=== PATIENT | male | born 1945 | race African-American/Black ===

== ENCOUNTER 2017-10-01 14:18 | Inpatient (IN) ==
[2017-10-01] MEDS ORDERED: BUPIVACAINE 0.25% 50 ML VIAL ONE (14:42)
[2017-10-01] MEDS ORDERED: ACETAMINOPHEN 325 MG TABLET PO ONE (14:53)
[2017-10-01] MEDS ORDERED: ACETAMINOPHEN 325 MG TABLET ONE (15:19)
[2017-10-01 15:44] LABS: Basophils # 0.1 10*3/uL (0.0-0.2); Basophils % 0.2 % (0.0-0.8); Hematocrit 29.4 VOL% (42.0-52.0); Immature Granulocytes % 1.2 %; Immature Granulocytes Absolute 0.31 #; Lymphocytes # 0.9 10*3/uL (1.4-4.0); Lymphocytes % 3.5 % (21.2-54.2); Mean Corpuscular Hemoglobin 28 PG (27-34); Mean Corpuscular Volume 83.1 FL (87-102); Mean Platelet Volume 9.7 FL (9.6-12.0); Monocytes % 3.7 % (1.7-12.7); Neutrophils # 24.3 10*3/uL (1.4-7.4); Neutrophils % 91.4 % (38.7-73.9); Platelet Count 415 T/CUMM (130-400); Red Blood Count 3.54 MC/CUMM (3.8-5.5); Red Cell Distribution Width 12.7 % (9.3-17.3); White Blood Count 26.6 T/CUMM (4-12)
[2017-10-01 16:01] LABS: Lactic Acid 1.7 MMOL/L (0.4-2.0)
[2017-10-01 16:02] LABS: Albumin 2.2 G/DL (3.4-5.0); Bilirubin,Total 0.8 MG/DL (0.2-1.0); Calcium 7.9 MG/DL (8.5-10.1); Total Protein 6.5 G/DL (6.4-8.3)
[2017-10-01] MEDS ORDERED: INSULIN REGULAR 100 UNIT/ML SUBCUT STA (16:23)
[2017-10-01 16:36] LABS: Anisocytosis Slight; Band Neutrophils 2 % (0-10); Lymphocytes 5 % (20-55); Macrocytosis Slight; Platelet Estimate Increased; Segmented Neutrophils 89 % (50-85); Total Cells Counted 100
[2017-10-01] MEDS ORDERED: INSULIN REGULAR 100 UNIT/ML ONE (16:49)
[2017-10-01] MEDS ORDERED: GLUCAGON 1 MG VIAL IM PRN (19:10)
[2017-10-01] MEDS ORDERED: DEXTROSE 50% 25 GM/50 ML VIAL IV PRN (19:10)
[2017-10-01] MEDS ORDERED: ACETAMINOPHEN 325 MG TABLET PO PRN (19:16)
[2017-10-01] MEDS ORDERED: ONDANSETRON 4 MG/2 ML VIAL IV PRN (19:16)
[2017-10-01] MEDS ORDERED: hydrALAZINE 20 MG/1 ML VIAL IV PRN (19:31)
[2017-10-01] MEDS: DOCUSATE SODIUM 100 MG CAPSULE PO SCH (20:46)
[2017-10-01] MEDS: PIPERACILLIN/TAZOBACTAM 3,375 MG in SODIUM CHLORIDE 0.9% 100 ML IV SCH (20:47)
[2017-10-01] MEDS: ENOXAPARIN 40 MG/0.4 ML SYRINGE SUBCUT SCH (20:55)
[2017-10-01] MEDS: INSULIN REGULAR 100 UNIT/ML SUBCUT SCH (20:55)
[2017-10-02] MEDS: VANCOMYCIN INJ 1,250 MG in SODIUM CHLORIDE 0.9% 250 ML IV SCH ×2 (00:43→12:03)
[2017-10-02] MEDS: traMADol 50 MG TABLET PO PRN (04:23)
[2017-10-02] MEDS: PIPERACILLIN/TAZOBACTAM 3,375 MG in SODIUM CHLORIDE 0.9% 100 ML IV SCH ×3 (04:24→22:29)
[2017-10-02 05:42] LABS: Basophils % 0.2 % (0.0-0.8); Eosinophils % 0.1 % (0.00-10.9); Hematocrit 27.6 VOL% (42.0-52.0); Hemoglobin 9.5 GM/DL (14.0-18.0); Immature Granulocytes % 1.3 %; Immature Granulocytes Absolute 0.25 #; Lymphocytes # 1.5 10*3/uL (1.4-4.0); Lymphocytes % 7.5 % (21.2-54.2); Mean Corpuscular HGB Conc 34.4 GM/DL (32-36); Mean Corpuscular Hemoglobin 28 PG (27-34); Mean Corpuscular Volume 81.2 FL (87-102); Mean Platelet Volume 9.7 FL (9.6-12.0); Monocytes # 0.8 10*3/uL (0.11-0.8); Monocytes % 4.2 % (1.7-12.7); Neutrophils # 17.3 10*3/uL (1.4-7.4); Neutrophils % 86.7 % (38.7-73.9); Platelet Count 407 T/CUMM (130-400); Red Cell Distribution Width 12.7 % (9.3-17.3); White Blood Count 19.9 T/CUMM (4-12)
[2017-10-02 06:16] LABS: Calcium 7.8 MG/DL (8.5-10.1); Osmolality,Calculated 278.5 MOS/KG (273-304); Potassium 3.7 MMOL/L (3.5-5.1)
[2017-10-02 07:39] LABS: Apearance,Urine Slightly Hazy (Clear); Bilirubin,Urine Negative (Negative); Blood, Urine Negative (Negative); Glucose,Urine (UA) 150 mg/dL (Negative); Ketones,Urine Negative (Negative); Mucus,Urine Occasional /LPF (Occasional); Nitrite,Urine Negative (Negative); Protein,Urine Negative; RBC,Urine 2 /HPF (0-4); Sperm,Urine Many /HPF (Negative); Squamous Epithelial Cell,Urine Occasional /HPF (0-10); Urine Color Amber (Yellow); Urine Specific Gravity 1.023 (1.001-1.035); WBC,Urine 1 /HPF (0-6)
[2017-10-02 08:12] LABS: Band Neutrophils 3 % (0-10); Lymphocytes 2 % (20-55); Segmented Neutrophils 93 % (50-85); Total Cells Counted 100
[2017-10-02 08:13] LABS: Hypochromasia 1+; Platelet Estimate Increased
[2017-10-02] MEDS: amLODIPine 10 MG TABLET PO SCH (09:32)
[2017-10-02] MEDS: INSULIN REGULAR 100 UNIT/ML SUBCUT SCH ×4 (09:32→23:10)
[2017-10-02] MEDS: glyBURIDE 5 MG TABLET PO SCH (09:33)
[2017-10-02] MEDS: DOCUSATE SODIUM 100 MG CAPSULE PO SCH ×2 (09:33→22:29)
[2017-10-02] MEDS ORDERED: ROPIVACAINE 0.5% 30 ML VIAL ONE (13:03)
[2017-10-02] MEDS ORDERED: MIDAZOLAM 2 MG/2 ML VIAL ONE (13:22)
[2017-10-02] MEDS ORDERED: fentaNYL 100 MCG/2 ML VIAL ONE (13:22)
[2017-10-02] MEDS: LACTATED RINGERS 1,000 ML IV SCH (14:00)
[2017-10-02] MEDS ORDERED: COLLAGENASE OINT 30 GM TUBE TOP ONE (14:37)
[2017-10-02] MEDS ORDERED: ETOMIDATE 40 MG/20 ML VIAL IV ONE (14:59)
[2017-10-02] MEDS ORDERED: PROPOFOL 200 MG/20 ML VIAL IV ONE (14:59)
[2017-10-02] MEDS ORDERED: SODIUM CHLORIDE 0.9% 100 ML IV ONE (14:59)
[2017-10-02] MEDS ORDERED: ZINC OXIDE PASTE 113 GM TUBE TOP PRN (15:37)
[2017-10-02] MEDS: ENALAPRIL 10 MG TABLET PO SCH (17:07)
[2017-10-02] MEDS: PANTOPRAZOLE 40 MG TABLET PO SCH (17:09)
[2017-10-02] MEDS: ENOXAPARIN 40 MG/0.4 ML SYRINGE SUBCUT SCH (23:10)
[2017-10-03] MEDS: VANCOMYCIN INJ 1,250 MG in SODIUM CHLORIDE 0.9% 250 ML IV SCH ×2 (04:20→16:45)
[2017-10-03 05:23] LABS: Basophils % 0.2 % (0.0-0.8); Eosinophils # 0.1 10*3/uL (0.0-0.87); Eosinophils % 0.2 % (0.00-10.9); Hematocrit 30.6 VOL% (42.0-52.0); Immature Granulocytes % 0.9 %; Immature Granulocytes Absolute 0.18 #; Lymphocytes # 1.5 10*3/uL (1.4-4.0); Lymphocytes % 7.4 % (21.2-54.2); Mean Corpuscular HGB Conc 32.7 GM/DL (32-36); Mean Corpuscular Hemoglobin 28 PG (27-34); Mean Corpuscular Volume 84.8 FL (87-102); Mean Platelet Volume 9.7 FL (9.6-12.0); Monocytes # 0.9 10*3/uL (0.11-0.8); Monocytes % 4.4 % (1.7-12.7); Neutrophils # 17.4 10*3/uL (1.4-7.4); Neutrophils % 86.9 % (38.7-73.9); Platelet Count 438 T/CUMM (130-400); Red Blood Count 3.61 MC/CUMM (3.8-5.5); Red Cell Distribution Width 12.6 % (9.3-17.3)
[2017-10-03 05:55] LABS: Calcium 8.3 MG/DL (8.5-10.1); Osmolality,Calculated 283.1 MOS/KG (273-304); Potassium 3.7 MMOL/L (3.5-5.1)
[2017-10-03 05:56] LABS: Band Neutrophils 1 % (0-10); Lymphocytes 15 % (20-55); Platelet Estimate Normal; Segmented Neutrophils 83 % (50-85); Total Cells Counted 100
[2017-10-03 06:10] LABS: T4 (Thyroxine) 8.4 UG/DL (4.7-13.3); Thyroid Stimulating Hormone 0.72 uIU/ml (0.358-3.74)
[2017-10-03] MEDS: traMADol 50 MG TABLET PO PRN (06:17)
[2017-10-03] MEDS: SODIUM HYPOCHLORITE 0.25% IRRIG 473 ML BOTTLE TOP SCH ×2 (06:17→09:29)
[2017-10-03] MEDS: INSULIN REGULAR 100 UNIT/ML SUBCUT SCH ×4 (09:27→20:55)
[2017-10-03] MEDS: amLODIPine 10 MG TABLET PO SCH (09:27)
[2017-10-03] MEDS: PANTOPRAZOLE 40 MG TABLET PO SCH (09:27)
[2017-10-03] MEDS: glyBURIDE 5 MG TABLET PO SCH (09:27)
[2017-10-03] MEDS: DOCUSATE SODIUM 100 MG CAPSULE PO SCH ×2 (09:27→20:55)
[2017-10-03] MEDS: PIPERACILLIN/TAZOBACTAM 3,375 MG in SODIUM CHLORIDE 0.9% 100 ML IV SCH ×2 (09:28→20:56)
[2017-10-03] MEDS ORDERED: TUBERCULIN SKIN TEST 0.1 ML SYRINGE INTRADERM ONE (10:34)
[2017-10-03] MEDS: ENALAPRIL 10 MG TABLET PO SCH (18:09)
[2017-10-03] MEDS: LACTATED RINGERS 1,000 ML IV SCH (18:31)
[2017-10-03] MEDS: ENOXAPARIN 40 MG/0.4 ML SYRINGE SUBCUT SCH (20:55)
[2017-10-04] MEDS: VANCOMYCIN INJ 1,250 MG in SODIUM CHLORIDE 0.9% 250 ML IV SCH ×2 (03:33→16:51)
[2017-10-04 04:04] LABS: Basophils % 0.2 % (0.0-0.8); Eosinophils # 0.1 10*3/uL (0.0-0.87); Eosinophils % 0.5 % (0.00-10.9); Hematocrit 29.9 VOL% (42.0-52.0); Hemoglobin 10.1 GM/DL (14.0-18.0); Immature Granulocytes % 1.3 %; Immature Granulocytes Absolute 0.22 #; Lymphocytes # 1.4 10*3/uL (1.4-4.0); Lymphocytes % 8.5 % (21.2-54.2); Mean Corpuscular HGB Conc 33.8 GM/DL (32-36); Mean Corpuscular Hemoglobin 28 PG (27-34); Mean Corpuscular Volume 83.3 FL (87-102); Mean Platelet Volume 9.2 FL (9.6-12.0); Monocytes # 0.8 10*3/uL (0.11-0.8); Monocytes % 4.6 % (1.7-12.7); Neutrophils # 14.4 10*3/uL (1.4-7.4); Neutrophils % 84.9 % (38.7-73.9); Platelet Count 460 T/CUMM (130-400); Red Blood Count 3.59 MC/CUMM (3.8-5.5); Red Cell Distribution Width 12.8 % (9.3-17.3)
[2017-10-04 04:32] LABS: Calcium 8.3 MG/DL (8.5-10.1); Osmolality,Calculated 284.5 MOS/KG (273-304); Potassium 3.9 MMOL/L (3.5-5.1)
[2017-10-04] MEDS: PIPERACILLIN/TAZOBACTAM 3,375 MG in SODIUM CHLORIDE 0.9% 100 ML IV SCH ×3 (05:49→20:59)
[2017-10-04] MEDS: INSULIN REGULAR 100 UNIT/ML SUBCUT SCH ×4 (08:53→20:58)
[2017-10-04] MEDS: glyBURIDE 5 MG TABLET PO SCH (08:53)
[2017-10-04] MEDS: amLODIPine 10 MG TABLET PO SCH (08:54)
[2017-10-04] MEDS: DOCUSATE SODIUM 100 MG CAPSULE PO SCH ×2 (08:54→20:58)
[2017-10-04] MEDS: PANTOPRAZOLE 40 MG TABLET PO SCH (08:57)
[2017-10-04] MEDS: traMADol 50 MG TABLET PO PRN (12:35)
[2017-10-04] MEDS: SODIUM HYPOCHLORITE 0.25% IRRIG 473 ML BOTTLE TOP SCH (13:25)
[2017-10-04] MEDS: ENALAPRIL 10 MG TABLET PO SCH (16:52)
[2017-10-04] MEDS: ENOXAPARIN 40 MG/0.4 ML SYRINGE SUBCUT SCH (20:59)
[2017-10-05] MEDS: VANCOMYCIN INJ 1,250 MG in SODIUM CHLORIDE 0.9% 250 ML IV SCH ×2 (03:40→17:03)
[2017-10-05] MEDS: PIPERACILLIN/TAZOBACTAM 3,375 MG in SODIUM CHLORIDE 0.9% 100 ML IV SCH ×3 (05:42→20:39)
[2017-10-05] MEDS: INSULIN REGULAR 100 UNIT/ML SUBCUT SCH ×4 (07:17→20:38)
[2017-10-05] MEDS: DOCUSATE SODIUM 100 MG CAPSULE PO SCH ×2 (08:11→20:38)
[2017-10-05] MEDS: glyBURIDE 5 MG TABLET PO SCH (08:11)
[2017-10-05] MEDS: PANTOPRAZOLE 40 MG TABLET PO SCH (08:11)
[2017-10-05] MEDS: amLODIPine 10 MG TABLET PO SCH (08:11)
[2017-10-05 09:28] LABS: Basophils % 0.1 % (0.0-0.8); Eosinophils # 0.1 10*3/uL (0.0-0.87); Eosinophils % 0.7 % (0.00-10.9); Hematocrit 30.7 VOL% (42.0-52.0); Hemoglobin 10.2 GM/DL (14.0-18.0); Immature Granulocytes % 1.1 %; Immature Granulocytes Absolute 0.16 #; Lymphocytes # 1.4 10*3/uL (1.4-4.0); Lymphocytes % 10.1 % (21.2-54.2); Mean Corpuscular HGB Conc 33.2 GM/DL (32-36); Mean Corpuscular Hemoglobin 28 PG (27-34); Mean Corpuscular Volume 83.4 FL (87-102); Mean Platelet Volume 9.1 FL (9.6-12.0); Monocytes # 0.5 10*3/uL (0.11-0.8); Monocytes % 3.7 % (1.7-12.7); Neutrophils # 11.9 10*3/uL (1.4-7.4); Neutrophils % 84.3 % (38.7-73.9); Platelet Count 473 T/CUMM (130-400); Red Blood Count 3.68 MC/CUMM (3.8-5.5); Red Cell Distribution Width 12.9 % (9.3-17.3); White Blood Count 14.2 T/CUMM (4-12)
[2017-10-05 10:00] LABS: Albumin 2.2 G/DL (3.4-5.0); Bilirubin,Total 0.7 MG/DL (0.2-1.0); Calcium 8.4 MG/DL (8.5-10.1); Osmolality,Calculated 277.7 MOS/KG (273-304); Potassium 3.9 MMOL/L (3.5-5.1); Total Protein 6.7 G/DL (6.4-8.3)
[2017-10-05] MEDS: traMADol 50 MG TABLET PO PRN (12:14)
[2017-10-05] MEDS: ENALAPRIL 10 MG TABLET PO SCH (17:03)
[2017-10-05] MEDS: SODIUM HYPOCHLORITE 0.25% IRRIG 473 ML BOTTLE TOP SCH (17:50)
[2017-10-05] MEDS ORDERED: SKIN HEALING OINT (AQUAPHOR) 50 GM TUBE TOP PRN (17:51)
[2017-10-05] MEDS: ENOXAPARIN 40 MG/0.4 ML SYRINGE SUBCUT SCH (20:39)
[2017-10-06] MEDS ORDERED: SKIN HEALING OINT (AQUAPHOR) 50 GM TUBE TOP SCH (01:30)
[2017-10-06] MEDS: VANCOMYCIN INJ 1,250 MG in SODIUM CHLORIDE 0.9% 250 ML IV SCH ×2 (03:48→21:02)
[2017-10-06 05:50] LABS: Basophils % 0.3 % (0.0-0.8); Eosinophils # 0.1 10*3/uL (0.0-0.87); Eosinophils % 1.1 % (0.00-10.9); Hematocrit 29.8 VOL% (42.0-52.0); Hemoglobin 9.7 GM/DL (14.0-18.0); Immature Granulocytes % 1.1 %; Immature Granulocytes Absolute 0.12 #; Lymphocytes # 1.4 10*3/uL (1.4-4.0); Lymphocytes % 12.9 % (21.2-54.2); Mean Corpuscular HGB Conc 32.6 GM/DL (32-36); Mean Corpuscular Hemoglobin 28 PG (27-34); Mean Corpuscular Volume 84.9 FL (87-102); Mean Platelet Volume 9.9 FL (9.6-12.0); Monocytes # 0.7 10*3/uL (0.11-0.8); Monocytes % 6.2 % (1.7-12.7); Neutrophils # 8.7 10*3/uL (1.4-7.4); Neutrophils % 78.4 % (38.7-73.9); Platelet Count 465 T/CUMM (130-400); Red Blood Count 3.51 MC/CUMM (3.8-5.5); White Blood Count 11.1 T/CUMM (4-12)
[2017-10-06] MEDS: PIPERACILLIN/TAZOBACTAM 3,375 MG in SODIUM CHLORIDE 0.9% 100 ML IV SCH ×3 (05:50→23:44)
[2017-10-06 06:25] LABS: Albumin 2.1 G/DL (3.4-5.0); Bilirubin,Total 0.8 MG/DL (0.2-1.0); Calcium 8.2 MG/DL (8.5-10.1); Osmolality,Calculated 283.4 MOS/KG (273-304); Potassium 4.4 MMOL/L (3.5-5.1); Total Protein 6.7 G/DL (6.4-8.3)
[2017-10-06] MEDS: INSULIN REGULAR 100 UNIT/ML SUBCUT SCH ×4 (09:44→23:45)
[2017-10-06] MEDS: glyBURIDE 5 MG TABLET PO SCH (09:51)
[2017-10-06] MEDS: amLODIPine 10 MG TABLET PO SCH (09:51)
[2017-10-06] MEDS: traMADol 50 MG TABLET PO PRN (09:52)
[2017-10-06] MEDS: DOCUSATE SODIUM 100 MG CAPSULE PO SCH ×2 (09:52→21:55)
[2017-10-06] MEDS: PANTOPRAZOLE 40 MG TABLET PO SCH (09:52)
[2017-10-06] MEDS: SODIUM HYPOCHLORITE 0.25% IRRIG 473 ML BOTTLE TOP SCH (10:08)
[2017-10-06] MEDS: ENOXAPARIN 40 MG/0.4 ML SYRINGE SUBCUT SCH (21:55)
[2017-10-06] MEDS: ENALAPRIL 10 MG TABLET PO SCH (22:40)
[2017-10-07] MEDS: VANCOMYCIN INJ 1,250 MG in SODIUM CHLORIDE 0.9% 250 ML IV SCH ×2 (04:30→17:51)
[2017-10-07] MEDS: PIPERACILLIN/TAZOBACTAM 3,375 MG in SODIUM CHLORIDE 0.9% 100 ML IV SCH ×3 (05:57→21:32)
[2017-10-07 06:31] LABS: Basophils % 0.2 % (0.0-0.8); Eosinophils # 0.1 10*3/uL (0.0-0.87); Hematocrit 32.3 VOL% (42.0-52.0); Hemoglobin 10.4 GM/DL (14.0-18.0); Immature Granulocytes % 1.4 %; Immature Granulocytes Absolute 0.19 #; Lymphocytes # 2.1 10*3/uL (1.4-4.0); Mean Corpuscular HGB Conc 32.2 GM/DL (32-36); Mean Corpuscular Hemoglobin 28 PG (27-34); Mean Corpuscular Volume 85.4 FL (87-102); Mean Platelet Volume 9.1 FL (9.6-12.0); Monocytes # 0.8 10*3/uL (0.11-0.8); Monocytes % 6.1 % (1.7-12.7); Neutrophils # 9.9 10*3/uL (1.4-7.4); Neutrophils % 75.3 % (38.7-73.9); Platelet Count 519 T/CUMM (130-400); Red Blood Count 3.78 MC/CUMM (3.8-5.5); Red Cell Distribution Width 13.1 % (9.3-17.3); White Blood Count 13.2 T/CUMM (4-12)
[2017-10-07 07:08] LABS: Albumin 2.4 G/DL (3.4-5.0); Bilirubin,Total 0.8 MG/DL (0.2-1.0); Calcium 9.1 MG/DL (8.5-10.1); Osmolality,Calculated 279.3 MOS/KG (273-304); Potassium 3.9 MMOL/L (3.5-5.1); Total Protein 7.3 G/DL (6.4-8.3)
[2017-10-07] MEDS: INSULIN REGULAR 100 UNIT/ML SUBCUT SCH ×4 (08:44→22:56)
[2017-10-07] MEDS: glyBURIDE 5 MG TABLET PO SCH (08:45)
[2017-10-07] MEDS: DOCUSATE SODIUM 100 MG CAPSULE PO SCH ×2 (08:55→21:36)
[2017-10-07] MEDS: amLODIPine 10 MG TABLET PO SCH (08:55)
[2017-10-07] MEDS: PANTOPRAZOLE 40 MG TABLET PO SCH (08:55)
[2017-10-07] MEDS: SODIUM HYPOCHLORITE 0.25% IRRIG 473 ML BOTTLE TOP SCH (16:25)
[2017-10-07] MEDS: traMADol 50 MG TABLET PO PRN (18:02)
[2017-10-07] MEDS: ENALAPRIL 10 MG TABLET PO SCH (18:03)
[2017-10-07] MEDS: ENOXAPARIN 40 MG/0.4 ML SYRINGE SUBCUT SCH (21:35)
[2017-10-08] MEDS: VANCOMYCIN INJ 1,250 MG in SODIUM CHLORIDE 0.9% 250 ML IV SCH ×2 (04:42→19:40)
[2017-10-08] MEDS: PIPERACILLIN/TAZOBACTAM 3,375 MG in SODIUM CHLORIDE 0.9% 100 ML IV SCH ×3 (06:18→21:30)
[2017-10-08] MEDS: INSULIN REGULAR 100 UNIT/ML SUBCUT SCH ×4 (08:15→21:29)
[2017-10-08 08:48] LABS: INR 1.3; PT Patient Result 13.5 SECS
[2017-10-08] MEDS: amLODIPine 10 MG TABLET PO SCH (09:10)
[2017-10-08] MEDS: traMADol 50 MG TABLET PO PRN (09:10)
[2017-10-08] MEDS: DOCUSATE SODIUM 100 MG CAPSULE PO SCH ×2 (09:12→21:29)
[2017-10-08] MEDS: PANTOPRAZOLE 40 MG TABLET PO SCH (09:12)
[2017-10-08] MEDS: glyBURIDE 5 MG TABLET PO SCH (09:12)
[2017-10-08 09:27] LABS: Basophils % 0.3 % (0.0-0.8); Eosinophils # 0.1 10*3/uL (0.0-0.87); Hematocrit 29.6 VOL% (42.0-52.0); Hemoglobin 9.5 GM/DL (14.0-18.0); Immature Granulocytes % 0.7 %; Immature Granulocytes Absolute 0.07 #; Lymphocytes # 1.5 10*3/uL (1.4-4.0); Lymphocytes % 13.9 % (21.2-54.2); Mean Corpuscular HGB Conc 32.1 GM/DL (32-36); Mean Corpuscular Hemoglobin 28 PG (27-34); Mean Platelet Volume 9.2 FL (9.6-12.0); Monocytes # 0.6 10*3/uL (0.11-0.8); Neutrophils # 8.2 10*3/uL (1.4-7.4); Neutrophils % 78.1 % (38.7-73.9); Platelet Count 455 T/CUMM (130-400); Red Blood Count 3.44 MC/CUMM (3.8-5.5); Red Cell Distribution Width 13.1 % (9.3-17.3); White Blood Count 10.5 T/CUMM (4-12)
[2017-10-08 09:55] LABS: Albumin 2.3 G/DL (3.4-5.0); Bilirubin,Total 0.9 MG/DL (0.2-1.0); Calcium 8.1 MG/DL (8.5-10.1); Osmolality,Calculated 284.4 MOS/KG (273-304); Potassium 4.1 MMOL/L (3.5-5.1); Total Protein 6.6 G/DL (6.4-8.3)
[2017-10-08] MEDS ORDERED: DIAZEPAM 5 MG TABLET PO ONE (13:51)
[2017-10-08] MEDS ORDERED: MIDAZOLAM 2 MG/2 ML VIAL IV ONE ×2 (13:51→16:05)
[2017-10-08] MEDS ORDERED: fentaNYL 100 MCG/2 ML VIAL IV ONE (13:51)
[2017-10-08] MEDS ORDERED: HEPARIN/NACL 0.9% 2 UNITS/ML 2,000 ML IV ONE (13:57)
[2017-10-08] MEDS ORDERED: fentaNYL 100 MCG/2 ML VIAL ONE (13:57)
[2017-10-08] MEDS ORDERED: MIDAZOLAM 2 MG/2 ML VIAL ONE ×2 (13:57→15:46)
[2017-10-08] MEDS: SODIUM CHLORIDE 0.45% 1,000 ML IV SCH (14:00)
[2017-10-08] MEDS ORDERED: HEPARIN 5,000 UNIT/1 ML VIAL ONE ×2 (14:42→15:40)
[2017-10-08] MEDS ORDERED: HEPARIN 5,000 UNIT/1 ML VIAL IV PRN ×2 (14:44→15:38)
[2017-10-08] MEDS: SODIUM HYPOCHLORITE 0.25% IRRIG 473 ML BOTTLE TOP SCH (17:00)
[2017-10-08] MEDS: ENALAPRIL 10 MG TABLET PO SCH (17:00)
[2017-10-08] MEDS: ENOXAPARIN 40 MG/0.4 ML SYRINGE SUBCUT SCH (21:29)
[2017-10-09] MEDS: VANCOMYCIN INJ 1,250 MG in SODIUM CHLORIDE 0.9% 250 ML IV SCH ×2 (03:15→17:25)
[2017-10-09] MEDS: PIPERACILLIN/TAZOBACTAM 3,375 MG in SODIUM CHLORIDE 0.9% 100 ML IV SCH ×3 (05:01→20:53)
[2017-10-09 05:23] LABS: Basophils % 0.2 % (0.0-0.8); Eosinophils # 0.1 10*3/uL (0.0-0.87); Eosinophils % 0.9 % (0.00-10.9); Hematocrit 29.9 VOL% (42.0-52.0); Hemoglobin 9.6 GM/DL (14.0-18.0); Immature Granulocytes Absolute 0.13 #; Lymphocytes # 1.3 10*3/uL (1.4-4.0); Lymphocytes % 9.7 % (21.2-54.2); Mean Corpuscular HGB Conc 32.1 GM/DL (32-36); Mean Corpuscular Hemoglobin 28 PG (27-34); Mean Corpuscular Volume 85.9 FL (87-102); Monocytes # 0.8 10*3/uL (0.11-0.8); Neutrophils # 10.8 10*3/uL (1.4-7.4); Neutrophils % 82.2 % (38.7-73.9); Platelet Count 449 T/CUMM (130-400); Red Blood Count 3.48 MC/CUMM (3.8-5.5); Red Cell Distribution Width 13.1 % (9.3-17.3); White Blood Count 13.1 T/CUMM (4-12)
[2017-10-09 05:57] LABS: Calcium 8.3 MG/DL (8.5-10.1); Osmolality,Calculated 274.5 MOS/KG (273-304); Potassium 4.5 MMOL/L (3.5-5.1)
[2017-10-09] MEDS: INSULIN REGULAR 100 UNIT/ML SUBCUT SCH ×4 (07:43→20:53)
[2017-10-09] MEDS: PANTOPRAZOLE 40 MG TABLET PO SCH (08:18)
[2017-10-09] MEDS: DOCUSATE SODIUM 100 MG CAPSULE PO SCH ×2 (08:18→20:53)
[2017-10-09] MEDS: glyBURIDE 5 MG TABLET PO SCH (08:18)
[2017-10-09] MEDS: amLODIPine 10 MG TABLET PO SCH (08:19)
[2017-10-09] MEDS: SODIUM HYPOCHLORITE 0.25% IRRIG 473 ML BOTTLE TOP SCH (11:45)
[2017-10-09] MEDS: SODIUM CHLORIDE 0.45% 1,000 ML IV SCH (13:20)
[2017-10-09] MEDS: ENALAPRIL 10 MG TABLET PO SCH (17:55)
[2017-10-09] MEDS: ENOXAPARIN 40 MG/0.4 ML SYRINGE SUBCUT SCH (20:53)
[2017-10-10] MEDS: VANCOMYCIN INJ 1,250 MG in SODIUM CHLORIDE 0.9% 250 ML IV SCH ×2 (03:09→17:06)
[2017-10-10] MEDS: PIPERACILLIN/TAZOBACTAM 3,375 MG in SODIUM CHLORIDE 0.9% 100 ML IV SCH ×3 (04:46→21:08)
[2017-10-10] MEDS: amLODIPine 10 MG TABLET PO SCH ×2 (06:09→08:02)
[2017-10-10] MEDS ORDERED: ROPIVACAINE 0.5% 30 ML VIAL ONE (07:01)
[2017-10-10] MEDS: SODIUM HYPOCHLORITE 0.25% IRRIG 473 ML BOTTLE TOP SCH (08:01)
[2017-10-10] MEDS: DOCUSATE SODIUM 100 MG CAPSULE PO SCH ×2 (08:01→21:08)
[2017-10-10] MEDS: INSULIN REGULAR 100 UNIT/ML SUBCUT SCH ×4 (08:01→21:08)
[2017-10-10] MEDS: glyBURIDE 5 MG TABLET PO SCH (08:01)
[2017-10-10] MEDS: PANTOPRAZOLE 40 MG TABLET PO SCH (08:02)
[2017-10-10] MEDS ORDERED: PROPOFOL 200 MG/20 ML VIAL IV ONE (08:05)
[2017-10-10] MEDS ORDERED: fentaNYL 100 MCG/2 ML VIAL ONE (08:05)
[2017-10-10 09:04] LABS: Basophils % 0.1 % (0.0-0.8); Eosinophils # 0.1 10*3/uL (0.0-0.87); Eosinophils % 0.7 % (0.00-10.9); Hematocrit 28.4 VOL% (42.0-52.0); Hemoglobin 9.2 GM/DL (14.0-18.0); Immature Granulocytes % 0.9 %; Lymphocytes # 1.6 10*3/uL (1.4-4.0); Lymphocytes % 13.4 % (21.2-54.2); Mean Corpuscular HGB Conc 32.4 GM/DL (32-36); Mean Corpuscular Hemoglobin 28 PG (27-34); Mean Corpuscular Volume 86.1 FL (87-102); Mean Platelet Volume 9.2 FL (9.6-12.0); Monocytes # 0.8 10*3/uL (0.11-0.8); Monocytes % 6.6 % (1.7-12.7); Neutrophils # 9.2 10*3/uL (1.4-7.4); Neutrophils % 78.3 % (38.7-73.9); Platelet Count 392 T/CUMM (130-400); Red Cell Distribution Width 13.1 % (9.3-17.3); White Blood Count 11.8 T/CUMM (4-12)
[2017-10-10 09:35] LABS: Osmolality,Calculated 279.4 MOS/KG (273-304); Potassium 4.1 MMOL/L (3.5-5.1)
[2017-10-10] MEDS ORDERED: ZINC OXIDE PASTE 113 GM TUBE TOP PRN (13:44)
[2017-10-10] MEDS: ENALAPRIL 10 MG TABLET PO SCH (17:04)
[2017-10-10] MEDS: ENOXAPARIN 40 MG/0.4 ML SYRINGE SUBCUT SCH (21:07)
[2017-10-11] MEDS: VANCOMYCIN INJ 1,250 MG in SODIUM CHLORIDE 0.9% 250 ML IV SCH ×2 (03:07→18:04)
[2017-10-11 05:35] LABS: Basophils % 0.2 % (0.0-0.8); Eosinophils # 0.1 10*3/uL (0.0-0.87); Hematocrit 28.7 VOL% (42.0-52.0); Hemoglobin 9.5 GM/DL (14.0-18.0); Immature Granulocytes % 0.7 %; Immature Granulocytes Absolute 0.08 #; Lymphocytes # 1.7 10*3/uL (1.4-4.0); Lymphocytes % 15.4 % (21.2-54.2); Mean Corpuscular HGB Conc 33.1 GM/DL (32-36); Mean Corpuscular Hemoglobin 28 PG (27-34); Mean Corpuscular Volume 83.4 FL (87-102); Mean Platelet Volume 9.4 FL (9.6-12.0); Monocytes # 0.7 10*3/uL (0.11-0.8); Monocytes % 6.1 % (1.7-12.7); Neutrophils # 8.5 10*3/uL (1.4-7.4); Neutrophils % 76.6 % (38.7-73.9); Platelet Count 362 T/CUMM (130-400); Red Blood Count 3.44 MC/CUMM (3.8-5.5); Red Cell Distribution Width 13.2 % (9.3-17.3); White Blood Count 11.1 T/CUMM (4-12)
[2017-10-11] MEDS: PIPERACILLIN/TAZOBACTAM 3,375 MG in SODIUM CHLORIDE 0.9% 100 ML IV SCH ×3 (05:45→21:29)
[2017-10-11 06:07] LABS: Calcium 8.3 MG/DL (8.5-10.1); Osmolality,Calculated 277.5 MOS/KG (273-304); Potassium 4.1 MMOL/L (3.5-5.1)
[2017-10-11] MEDS: INSULIN REGULAR 100 UNIT/ML SUBCUT SCH ×4 (08:30→21:29)
[2017-10-11] MEDS: DOCUSATE SODIUM 100 MG CAPSULE PO SCH ×2 (09:15→21:29)
[2017-10-11] MEDS: amLODIPine 10 MG TABLET PO SCH (09:16)
[2017-10-11] MEDS: PANTOPRAZOLE 40 MG TABLET PO SCH (09:16)
[2017-10-11] MEDS: glyBURIDE 5 MG TABLET PO SCH (09:16)
[2017-10-11] MEDS: SODIUM HYPOCHLORITE 0.25% IRRIG 473 ML BOTTLE TOP SCH (11:25)
[2017-10-11] MEDS ORDERED: MORPHINE 2 MG/1 ML SYRINGE IV PRN (11:38)
[2017-10-11] MEDS: ENALAPRIL 10 MG TABLET PO SCH (18:03)
[2017-10-11] MEDS: ENOXAPARIN 40 MG/0.4 ML SYRINGE SUBCUT SCH (21:28)
[2017-10-12] MEDS: VANCOMYCIN INJ 1,250 MG in SODIUM CHLORIDE 0.9% 250 ML IV SCH ×2 (03:16→17:56)
[2017-10-12] MEDS: SODIUM CHLORIDE 0.45% 1,000 ML IV SCH ×2 (04:16→17:56)
[2017-10-12 05:41] LABS: Basophils % 0.1 % (0.0-0.8); Eosinophils # 0.1 10*3/uL (0.0-0.87); Eosinophils % 0.8 % (0.00-10.9); Hematocrit 28.7 VOL% (42.0-52.0); Hemoglobin 9.6 GM/DL (14.0-18.0); Immature Granulocytes % 0.5 %; Immature Granulocytes Absolute 0.05 #; Lymphocytes # 1.5 10*3/uL (1.4-4.0); Lymphocytes % 14.4 % (21.2-54.2); Mean Corpuscular HGB Conc 33.4 GM/DL (32-36); Mean Corpuscular Hemoglobin 28 PG (27-34); Mean Corpuscular Volume 82.5 FL (87-102); Mean Platelet Volume 9.4 FL (9.6-12.0); Monocytes # 0.6 10*3/uL (0.11-0.8); Monocytes % 5.4 % (1.7-12.7); Neutrophils # 8.2 10*3/uL (1.4-7.4); Neutrophils % 78.8 % (38.7-73.9); Platelet Count 414 T/CUMM (130-400); Red Blood Count 3.48 MC/CUMM (3.8-5.5); Red Cell Distribution Width 13.2 % (9.3-17.3); White Blood Count 10.4 T/CUMM (4-12)
[2017-10-12] MEDS: PIPERACILLIN/TAZOBACTAM 3,375 MG in SODIUM CHLORIDE 0.9% 100 ML IV SCH ×3 (05:48→20:56)
[2017-10-12 06:19] LABS: Calcium 8.3 MG/DL (8.5-10.1); Osmolality,Calculated 280.3 MOS/KG (273-304)
[2017-10-12] MEDS: INSULIN REGULAR 100 UNIT/ML SUBCUT SCH ×4 (08:30→20:56)
[2017-10-12] MEDS: SODIUM HYPOCHLORITE 0.25% IRRIG 473 ML BOTTLE TOP SCH (08:45)
[2017-10-12] MEDS: amLODIPine 10 MG TABLET PO SCH (10:03)
[2017-10-12] MEDS: DOCUSATE SODIUM 100 MG CAPSULE PO SCH ×2 (10:09→20:56)
[2017-10-12] MEDS: PANTOPRAZOLE 40 MG TABLET PO SCH (10:10)
[2017-10-12] MEDS: glyBURIDE 5 MG TABLET PO SCH (10:10)
[2017-10-12] MEDS: ENALAPRIL 10 MG TABLET PO SCH (17:56)
[2017-10-12] MEDS: ENOXAPARIN 40 MG/0.4 ML SYRINGE SUBCUT SCH (20:56)
[2017-10-13] MEDS: VANCOMYCIN INJ 1,250 MG in SODIUM CHLORIDE 0.9% 250 ML IV SCH ×2 (03:23→18:38)
[2017-10-13] MEDS: PIPERACILLIN/TAZOBACTAM 3,375 MG in SODIUM CHLORIDE 0.9% 100 ML IV SCH ×3 (05:57→20:52)
[2017-10-13 06:29] LABS: Basophils % 0.2 % (0.0-0.8); Eosinophils # 0.1 10*3/uL (0.0-0.87); Eosinophils % 1.3 % (0.00-10.9); Hematocrit 29.3 VOL% (42.0-52.0); Hemoglobin 9.7 GM/DL (14.0-18.0); Immature Granulocytes % 0.4 %; Immature Granulocytes Absolute 0.04 #; Lymphocytes # 1.4 10*3/uL (1.4-4.0); Lymphocytes % 12.6 % (21.2-54.2); Mean Corpuscular HGB Conc 33.1 GM/DL (32-36); Mean Corpuscular Hemoglobin 28 PG (27-34); Mean Corpuscular Volume 83.7 FL (87-102); Mean Platelet Volume 10.2 FL (9.6-12.0); Monocytes # 0.6 10*3/uL (0.11-0.8); Monocytes % 5.2 % (1.7-12.7); Neutrophils # 8.7 10*3/uL (1.4-7.4); Neutrophils % 80.3 % (38.7-73.9); Platelet Count 357 T/CUMM (130-400); Red Cell Distribution Width 13.3 % (9.3-17.3); White Blood Count 10.9 T/CUMM (4-12)
[2017-10-13 06:57] LABS: Calcium 8.6 MG/DL (8.5-10.1); Osmolality,Calculated 283.1 MOS/KG (273-304)
[2017-10-13] MEDS: INSULIN REGULAR 100 UNIT/ML SUBCUT SCH ×4 (07:46→20:50)
[2017-10-13] MEDS: amLODIPine 10 MG TABLET PO SCH (09:25)
[2017-10-13] MEDS: DOCUSATE SODIUM 100 MG CAPSULE PO SCH ×2 (09:25→20:49)
[2017-10-13] MEDS: PANTOPRAZOLE 40 MG TABLET PO SCH (09:25)
[2017-10-13] MEDS: glyBURIDE 5 MG TABLET PO SCH (09:25)
[2017-10-13] MEDS: SODIUM HYPOCHLORITE 0.25% IRRIG 473 ML BOTTLE TOP SCH (16:07)
[2017-10-13] MEDS: ENALAPRIL 10 MG TABLET PO SCH (16:08)
[2017-10-13] MEDS: SODIUM CHLORIDE 0.45% 1,000 ML IV SCH (16:08)
[2017-10-13] MEDS: ENOXAPARIN 40 MG/0.4 ML SYRINGE SUBCUT SCH (20:50)
[2017-10-14] MEDS: VANCOMYCIN INJ 1,250 MG in SODIUM CHLORIDE 0.9% 250 ML IV SCH ×2 (04:40→17:49)
[2017-10-14] MEDS: INSULIN REGULAR 100 UNIT/ML SUBCUT SCH ×4 (08:58→21:29)
[2017-10-14] MEDS: glyBURIDE 5 MG TABLET PO SCH (10:13)
[2017-10-14] MEDS: DOCUSATE SODIUM 100 MG CAPSULE PO SCH ×2 (10:13→21:29)
[2017-10-14] MEDS: PANTOPRAZOLE 40 MG TABLET PO SCH (10:13)
[2017-10-14] MEDS: amLODIPine 10 MG TABLET PO SCH (10:14)
[2017-10-14] MEDS: PIPERACILLIN/TAZOBACTAM 3,375 MG in SODIUM CHLORIDE 0.9% 100 ML IV SCH ×2 (10:15→22:00)
[2017-10-14] MEDS: SODIUM HYPOCHLORITE 0.25% IRRIG 473 ML BOTTLE TOP SCH (10:16)
[2017-10-14] MEDS: SODIUM CHLORIDE 0.45% 1,000 ML IV SCH (16:55)
[2017-10-14] MEDS: ENALAPRIL 10 MG TABLET PO SCH (17:49)
[2017-10-14] MEDS: ENOXAPARIN 40 MG/0.4 ML SYRINGE SUBCUT SCH (21:29)
[2017-10-15] MEDS: VANCOMYCIN INJ 1,250 MG in SODIUM CHLORIDE 0.9% 250 ML IV SCH (03:20)
[2017-10-15 04:51] LABS: Basophils % 0.2 % (0.0-0.8); Eosinophils # 0.2 10*3/uL (0.0-0.87); Eosinophils % 1.4 % (0.00-10.9); Hematocrit 28.3 VOL% (42.0-52.0); Hemoglobin 9.4 GM/DL (14.0-18.0); Immature Granulocytes % 0.5 %; Immature Granulocytes Absolute 0.06 #; Lymphocytes # 1.7 10*3/uL (1.4-4.0); Lymphocytes % 14.5 % (21.2-54.2); Mean Corpuscular HGB Conc 33.2 GM/DL (32-36); Mean Corpuscular Hemoglobin 28 PG (27-34); Mean Corpuscular Volume 82.7 FL (87-102); Mean Platelet Volume 9.3 FL (9.6-12.0); Monocytes # 0.7 10*3/uL (0.11-0.8); Monocytes % 5.9 % (1.7-12.7); Neutrophils # 8.9 10*3/uL (1.4-7.4); Neutrophils % 77.5 % (38.7-73.9); Platelet Count 397 T/CUMM (130-400); Red Blood Count 3.42 MC/CUMM (3.8-5.5); Red Cell Distribution Width 13.4 % (9.3-17.3); White Blood Count 11.4 T/CUMM (4-12)
[2017-10-15 05:20] LABS: Calcium 8.5 MG/DL (8.5-10.1); Osmolality,Calculated 281.3 MOS/KG (273-304); Potassium 3.8 MMOL/L (3.5-5.1)
[2017-10-15] MEDS: PIPERACILLIN/TAZOBACTAM 3,375 MG in SODIUM CHLORIDE 0.9% 100 ML IV SCH ×2 (06:00→16:32)
[2017-10-15] MEDS: INSULIN REGULAR 100 UNIT/ML SUBCUT SCH ×2 (08:27→12:30)
[2017-10-15] MEDS: glyBURIDE 5 MG TABLET PO SCH (09:49)
[2017-10-15] MEDS: PANTOPRAZOLE 40 MG TABLET PO SCH (09:49)
[2017-10-15] MEDS: amLODIPine 10 MG TABLET PO SCH (09:49)
[2017-10-15] MEDS: SODIUM HYPOCHLORITE 0.25% IRRIG 473 ML BOTTLE TOP SCH (09:50)
[2017-10-15] MEDS: DOCUSATE SODIUM 100 MG CAPSULE PO SCH (09:50)
[2017-10-15 11:00] VITALS: BP 144/74
== END 2017-10-15 15:55 | DRG 253 ==
LOC: EDUNIT# → EDBD → N.ED 14:18 → N.EDINP 16:21 → SUATTDRO 16:21 → N.3E 17:30
PROVIDERS: ADMIT Family Medicine; ATTEND Family Medicine

== ENCOUNTER 2017-11-03 13:50 | Inpatient (IN) ==
[2017-11-03 15:13] LABS: Basophils % 0.1 % (0.0-0.8); Hematocrit 30.3 VOL% (42.0-52.0); Hemoglobin 10.4 GM/DL (14.0-18.0); Immature Granulocytes Absolute 0.29 #; Lymphocytes # 1.3 10*3/uL (1.4-4.0); Lymphocytes % 4.4 % (21.2-54.2); Mean Corpuscular HGB Conc 34.3 GM/DL (32-36); Mean Corpuscular Hemoglobin 28 PG (27-34); Mean Corpuscular Volume 81.9 FL (87-102); Mean Platelet Volume 9.8 FL (9.6-12.0); Monocytes # 1.3 10*3/uL (0.11-0.8); Monocytes % 4.4 % (1.7-12.7); Neutrophils # 26.8 10*3/uL (1.4-7.4); Neutrophils % 90.1 % (38.7-73.9); Platelet Count 310 T/CUMM (130-400); Red Cell Distribution Width 14.3 % (9.3-17.3); White Blood Count 29.7 T/CUMM (4-12)
[2017-11-03 15:41] LABS: Alanine Aminotransferase 18 U/L (16-61); Albumin 2.5 G/DL (3.4-5.0); Alkaline Phosphatase 97 U/L (45-117); Aspartate Amino Transferase 31 U/L (0-37); Blood Urea Nitrogen 20 MG/DL (7-18); Calcium 8.7 MG/DL (8.5-10.1); Osmolality,Calculated 280.3 MOS/KG (273-304); Potassium 3.8 MMOL/L (3.5-5.1); Sodium 141 MMOL/L (136-145); Total Protein 7.2 G/DL (6.4-8.3)
[2017-11-03 15:47] LABS: Glucose 39 MG/DL (74-106)
[2017-11-03] MEDS ORDERED: DEXTROSE 50% 25 GM/50 ML SYRINGE IV ONE (15:47)
[2017-11-03 15:48] LABS: Lactic Acid 2.1 MMOL/L (0.4-2.0)
[2017-11-03] MEDS ORDERED: DEXTROSE 50% 25 GM/50 ML VIAL IV STA (15:51)
[2017-11-03] MEDS ORDERED: SODIUM CHLORIDE 0.9% 2,300 ML IV ONE ×2 (15:56→18:35)
[2017-11-03] MEDS ORDERED: PIPERACILLIN/TAZOBACTAM 3,375 MG VIAL IV ONE (16:02)
[2017-11-03] MEDS ORDERED: SODIUM CHLORIDE 0.9% 100 ML IV ONE (16:02)
[2017-11-03 16:10] LABS: Band Neutrophils 2 % (0-10); Lymphocytes 5 % (20-55); Segmented Neutrophils 90 % (50-85)
[2017-11-03 16:11] LABS: Total Cells Counted 100
[2017-11-03 16:12] LABS: Platelet Estimate Normal
[2017-11-03] MEDS: PIPERACILLIN/TAZOBACTAM 3,375 MG in SODIUM CHLORIDE 0.9% 100 ML IV SCH (16:17)
[2017-11-03] MEDS: DEXTROSE 50% 25 GM/50 ML VIAL IV PRN ×2 (19:39→22:17)
[2017-11-03] MEDS: INSULIN LISPRO 100 UNIT/ML SUBCUT SCH (20:03)
[2017-11-03] MEDS: GLUCAGON 1 MG VIAL IM PRN (20:09)
[2017-11-03] MEDS ORDERED: ONDANSETRON 4 MG/2 ML VIAL IV PRN (21:08)
[2017-11-03] MEDS: VANCOMYCIN INJ 1,250 MG in SODIUM CHLORIDE 0.9% 250 ML IV SCH (21:21)
[2017-11-03] MEDS: LACTATED RINGERS 1,000 ML IV SCH ×2 (21:21→23:38)
[2017-11-03] MEDS: DEXTROSE 10% 1,000 ML IV SCH (22:37)
[2017-11-04] MEDS: ACETAMINOPHEN 325 MG TABLET PO PRN (00:22)
[2017-11-04] MEDS: PIPERACILLIN/TAZOBACTAM 3,375 MG in SODIUM CHLORIDE 0.9% 100 ML IV SCH ×3 (00:23→17:39)
[2017-11-04] MEDS: GLUCAGON 1 MG VIAL IM PRN (01:37)
[2017-11-04] MEDS: DEXTROSE 50% 25 GM/50 ML VIAL IV PRN ×3 (03:17→11:29)
[2017-11-04 05:15] LABS: Basophils % 0.2 % (0.0-0.8); Hematocrit 28.1 VOL% (42.0-52.0); Hemoglobin 9.1 GM/DL (14.0-18.0); Immature Granulocytes % 1.9 %; Immature Granulocytes Absolute 0.43 #; Lymphocytes % 4.3 % (21.2-54.2); Mean Corpuscular HGB Conc 32.4 GM/DL (32-36); Mean Corpuscular Hemoglobin 27 PG (27-34); Mean Corpuscular Volume 84.6 FL (87-102); Mean Platelet Volume 10.1 FL (9.6-12.0); Monocytes # 0.9 10*3/uL (0.11-0.8); Neutrophils % 89.6 % (38.7-73.9); Platelet Count 260 T/CUMM (130-400); Red Blood Count 3.32 MC/CUMM (3.8-5.5); Red Cell Distribution Width 14.2 % (9.3-17.3); White Blood Count 22.4 T/CUMM (4-12)
[2017-11-04 05:39] LABS: Band Neutrophils 1 % (0-10); Eosinophils 1 % (0-10); Hypochromasia 1+; Lymphocytes 3 % (20-55); Ovalocytes Slight; Platelet Estimate Adequate; Segmented Neutrophils 92 % (50-85); Total Cells Counted 100
[2017-11-04 05:40] LABS: Giant Platelets Few
[2017-11-04 05:44] LABS: Calcium 7.8 MG/DL (8.5-10.1); Potassium 3.4 MMOL/L (3.5-5.1)
[2017-11-04] MEDS: LACTATED RINGERS 1,000 ML IV SCH ×3 (05:50→19:18)
[2017-11-04] MEDS: INSULIN LISPRO 100 UNIT/ML SUBCUT SCH ×4 (08:29→21:12)
[2017-11-04] MEDS: ACETAMINOPHEN 500 MG TABLET PO SCH (09:30)
[2017-11-04] MEDS: amLODIPine 10 MG TABLET PO SCH (09:30)
[2017-11-04] MEDS: VANCOMYCIN INJ 1,250 MG in SODIUM CHLORIDE 0.9% 250 ML IV SCH ×2 (11:00→21:44)
[2017-11-04] MEDS ORDERED: POTASSIUM CHLORIDE RIDER 20 MEQ in PREMIX 1 EACH IV PRN (11:32)
[2017-11-04] MEDS: ZINC OXIDE PASTE 113 GM TUBE TOP SCH ×2 (15:01→21:44)
[2017-11-04] MEDS: ENALAPRIL 10 MG TABLET PO SCH (17:40)
[2017-11-04] MEDS: DEXTROSE 10% 1,000 ML IV SCH (19:17)
[2017-11-05] MEDS: PIPERACILLIN/TAZOBACTAM 3,375 MG in SODIUM CHLORIDE 0.9% 100 ML IV SCH ×3 (00:22→15:30)
[2017-11-05] MEDS: LACTATED RINGERS 1,000 ML IV SCH (00:22)
[2017-11-05] MEDS: DEXTROSE 50% 25 GM/50 ML VIAL IV PRN (03:15)
[2017-11-05 04:12] LABS: Basophils % 0.1 % (0.0-0.8); Eosinophils # 0.1 10*3/uL (0.0-0.87); Eosinophils % 0.6 % (0.00-10.9); Hematocrit 23.6 VOL% (42.0-52.0); Immature Granulocytes % 1.5 %; Immature Granulocytes Absolute 0.25 #; Lymphocytes % 5.8 % (21.2-54.2); Mean Corpuscular HGB Conc 33.9 GM/DL (32-36); Mean Corpuscular Hemoglobin 28 PG (27-34); Mean Corpuscular Volume 81.4 FL (87-102); Mean Platelet Volume 10.2 FL (9.6-12.0); Monocytes # 0.6 10*3/uL (0.11-0.8); Monocytes % 3.6 % (1.7-12.7); Neutrophils # 15.1 10*3/uL (1.4-7.4); Neutrophils % 88.4 % (38.7-73.9); Platelet Count 236 T/CUMM (130-400); Red Cell Distribution Width 13.9 % (9.3-17.3); White Blood Count 17.1 T/CUMM (4-12)
[2017-11-05 04:32] LABS: Calcium 7.4 MG/DL (8.5-10.1); Osmolality,Calculated 285.1 MOS/KG (273-304); Potassium 3.1 MMOL/L (3.5-5.1)
[2017-11-05 04:38] LABS: Hypochromasia 1+; Microcytosis Slight; Platelet Estimate Normal
[2017-11-05] MEDS: INSULIN LISPRO 100 UNIT/ML SUBCUT SCH ×4 (07:19→20:15)
[2017-11-05] MEDS: DEXTROSE 10% 1,000 ML IV SCH (07:22)
[2017-11-05] MEDS: VANCOMYCIN INJ 1,250 MG in SODIUM CHLORIDE 0.9% 250 ML IV SCH ×2 (08:17→20:15)
[2017-11-05] MEDS: ZINC OXIDE PASTE 113 GM TUBE TOP SCH ×2 (08:23→23:53)
[2017-11-05] MEDS: amLODIPine 10 MG TABLET PO SCH (08:48)
[2017-11-05] MEDS: ACETAMINOPHEN 500 MG TABLET PO SCH (08:48)
[2017-11-05] MEDS: DEXTROSE 5% NACL 0.9% 1,000 ML IV SCH (09:15)
[2017-11-05] MEDS: MORPHINE 4 MG/1 ML VIAL IV PRN ×4 (10:00→23:52)
[2017-11-05] MEDS: POTASSIUM CHLORIDE RIDER 10 MEQ in PREMIX 1 EACH IV PRN ×4 (10:04→17:35)
[2017-11-05 10:15] LABS: Apearance,Urine CLOUDY (Clear); Bilirubin,Urine Negative (Negative); Blood, Urine Moderate mg/dL (Negative); Glucose,Urine (UA) Negative (Negative); Ketones,Urine Negative (Negative); Nitrite,Urine Positive (Negative); Protein,Urine 30 MG/DL; RBC,Urine 23 /HPF (0-4); Urine Color Yellow (Yellow); Urine Specific Gravity 1.008 (1.001-1.035); WBC,Urine 724 /HPF (0-6)
[2017-11-05] MEDS ORDERED: PROPOFOL 200 MG/20 ML VIAL IV ONE (13:04)
[2017-11-05] MEDS ORDERED: MIDAZOLAM 2 MG/2 ML VIAL ONE (13:04)
[2017-11-05] MEDS ORDERED: SEVOFLURANE 1 UNIT/15 MINUTE INH ONE (13:04)
[2017-11-05] MEDS ORDERED: PHENYLEPHRINE 1 MG/10 ML SYRINGE IV ONE (13:04)
[2017-11-05] MEDS ORDERED: fentaNYL 100 MCG/2 ML VIAL ONE (13:04)
[2017-11-05] MEDS ORDERED: PHENYLEPHRINE 10 MG/1 ML VIAL IV ONE (13:04)
[2017-11-05] MEDS: MEPERIDINE 25 MG/1 ML VIAL IV PRN (13:35)
[2017-11-05] MEDS ORDERED: MEPERIDINE 25 MG/1 ML VIAL ONE (13:36)
[2017-11-05] MEDS ORDERED: ONDANSETRON 4 MG/2 ML VIAL ONE (13:36)
[2017-11-05] MEDS ORDERED: ONDANSETRON 4 MG/2 ML VIAL IV PRN (13:40)
[2017-11-05] MEDS: ENALAPRIL 10 MG TABLET PO SCH (16:24)
[2017-11-06] MEDS: DEXTROSE 5% NACL 0.9% 1,000 ML IV SCH ×2 (00:13→04:01)
[2017-11-06] MEDS: PIPERACILLIN/TAZOBACTAM 3,375 MG in SODIUM CHLORIDE 0.9% 100 ML IV SCH ×4 (00:13→23:40)
[2017-11-06 05:42] LABS: Basophils % 0.1 % (0.0-0.8); Eosinophils # 0.2 10*3/uL (0.0-0.87); Eosinophils % 1.2 % (0.00-10.9); Hematocrit 22.2 VOL% (42.0-52.0); Hemoglobin 7.4 GM/DL (14.0-18.0); Immature Granulocytes % 0.7 %; Immature Granulocytes Absolute 0.09 #; Lymphocytes # 1.1 10*3/uL (1.4-4.0); Lymphocytes % 8.3 % (21.2-54.2); Mean Corpuscular HGB Conc 33.3 GM/DL (32-36); Mean Corpuscular Hemoglobin 27 PG (27-34); Mean Corpuscular Volume 82.2 FL (87-102); Mean Platelet Volume 10.6 FL (9.6-12.0); Monocytes # 0.7 10*3/uL (0.11-0.8); Monocytes % 5.6 % (1.7-12.7); Neutrophils # 10.8 10*3/uL (1.4-7.4); Neutrophils % 84.1 % (38.7-73.9); Platelet Count 253 T/CUMM (130-400); Red Cell Distribution Width 14.2 % (9.3-17.3); White Blood Count 12.8 T/CUMM (4-12)
[2017-11-06 06:10] LABS: Eosinophils 3 % (0-10); Lymphocytes 10 % (20-55); Nucleated Red Blood Cells 1 (0-5); Segmented Neutrophils 85 % (50-85); Total Cells Counted 100
[2017-11-06 06:11] LABS: Giant Platelets Few; Hypochromasia 1+; Microcytosis Slight; Ovalocytes Slight; Platelet Estimate Adequate
[2017-11-06 06:23] LABS: Calcium 7.1 MG/DL (8.5-10.1); Potassium 3.6 MMOL/L (3.5-5.1)
[2017-11-06] MEDS: INSULIN LISPRO 100 UNIT/ML SUBCUT SCH ×4 (07:25→21:18)
[2017-11-06] MEDS ORDERED: SODIUM CHLORIDE 0.9% 1,000 ML IV PRN (07:46)
[2017-11-06] MEDS: ACETAMINOPHEN 500 MG TABLET PO SCH (08:10)
[2017-11-06] MEDS: amLODIPine 10 MG TABLET PO SCH (08:10)
[2017-11-06] MEDS: ZINC OXIDE PASTE 113 GM TUBE TOP SCH (08:11)
[2017-11-06] MEDS: VANCOMYCIN INJ 1,250 MG in SODIUM CHLORIDE 0.9% 250 ML IV SCH ×2 (08:11→21:18)
[2017-11-06] MEDS: ENOXAPARIN 40 MG/0.4 ML SYRINGE SUBCUT SCH (09:50)
[2017-11-06] MEDS ORDERED: FUROSEMIDE 20 MG/2 ML VIAL IV ONE (09:55)
[2017-11-06] MEDS ORDERED: GLUCAGON 1 MG VIAL IM PRN (10:27)
[2017-11-06] MEDS ORDERED: DEXTROSE 50% 25 GM/50 ML VIAL IV PRN (10:27)
[2017-11-06] MEDS: MORPHINE 4 MG/1 ML VIAL IV PRN ×2 (15:00→23:33)
[2017-11-06] MEDS: ENALAPRIL 10 MG TABLET PO SCH (16:18)
[2017-11-06] MEDS: SODIUM CHLORIDE 0.9% 1,000 ML IV SCH (16:18)
[2017-11-06 17:14] LABS: Hematocrit 32.5 VOL% (42.0-52.0)
[2017-11-07] MEDS: SODIUM CHLORIDE 0.9% 1,000 ML IV SCH ×2 (01:21→22:21)
[2017-11-07 03:23] LABS: Basophils % 0.2 % (0.0-0.8); Eosinophils # 0.2 10*3/uL (0.0-0.87); Eosinophils % 1.5 % (0.00-10.9); Hematocrit 30.5 VOL% (42.0-52.0); Hemoglobin 10.2 GM/DL (14.0-18.0); Immature Granulocytes % 0.8 %; Lymphocytes # 1.8 10*3/uL (1.4-4.0); Lymphocytes % 13.5 % (21.2-54.2); Mean Corpuscular HGB Conc 33.4 GM/DL (32-36); Mean Corpuscular Hemoglobin 28 PG (27-34); Mean Corpuscular Volume 84.7 FL (87-102); Mean Platelet Volume 10.1 FL (9.6-12.0); Monocytes # 0.9 10*3/uL (0.11-0.8); Monocytes % 6.5 % (1.7-12.7); Neutrophils # 10.3 10*3/uL (1.4-7.4); Neutrophils % 77.5 % (38.7-73.9); Platelet Count 257 T/CUMM (130-400); Red Cell Distribution Width 13.8 % (9.3-17.3); White Blood Count 13.3 T/CUMM (4-12)
[2017-11-07 03:50] LABS: Calcium 7.5 MG/DL (8.5-10.1); Potassium 3.6 MMOL/L (3.5-5.1)
[2017-11-07] MEDS: ZINC OXIDE PASTE 113 GM TUBE TOP SCH ×3 (06:01→21:53)
[2017-11-07] MEDS: MORPHINE 4 MG/1 ML VIAL IV PRN ×3 (06:24→23:51)
[2017-11-07] MEDS: PIPERACILLIN/TAZOBACTAM 3,375 MG in SODIUM CHLORIDE 0.9% 100 ML IV SCH ×2 (08:40→17:43)
[2017-11-07] MEDS: INSULIN LISPRO 100 UNIT/ML SUBCUT SCH ×4 (09:21→21:53)
[2017-11-07] MEDS: ENOXAPARIN 40 MG/0.4 ML SYRINGE SUBCUT SCH (09:22)
[2017-11-07] MEDS: VANCOMYCIN INJ 1,250 MG in SODIUM CHLORIDE 0.9% 250 ML IV SCH ×2 (09:29→22:21)
[2017-11-07] MEDS: amLODIPine 10 MG TABLET PO SCH (09:29)
[2017-11-07] MEDS: ACETAMINOPHEN 500 MG TABLET PO SCH (09:29)
[2017-11-07] MEDS: ENALAPRIL 10 MG TABLET PO SCH (17:43)
[2017-11-07] MEDS: glyBURIDE 5 MG TABLET PO SCH (21:53)
[2017-11-08] MEDS: PIPERACILLIN/TAZOBACTAM 3,375 MG in SODIUM CHLORIDE 0.9% 100 ML IV SCH ×3 (02:25→16:00)
[2017-11-08 05:47] LABS: Basophils % 0.2 % (0.0-0.8); Eosinophils # 0.4 10*3/uL (0.0-0.87); Eosinophils % 3.3 % (0.00-10.9); Hematocrit 28.4 VOL% (42.0-52.0); Hemoglobin 9.6 GM/DL (14.0-18.0); Immature Granulocytes % 1.1 %; Immature Granulocytes Absolute 0.13 #; Lymphocytes # 1.7 10*3/uL (1.4-4.0); Lymphocytes % 13.9 % (21.2-54.2); Mean Corpuscular HGB Conc 33.8 GM/DL (32-36); Mean Corpuscular Hemoglobin 28 PG (27-34); Mean Corpuscular Volume 81.8 FL (87-102); Mean Platelet Volume 9.7 FL (9.6-12.0); Monocytes # 0.7 10*3/uL (0.11-0.8); Neutrophils # 9.3 10*3/uL (1.4-7.4); Neutrophils % 75.5 % (38.7-73.9); Platelet Count 281 T/CUMM (130-400); Red Blood Count 3.47 MC/CUMM (3.8-5.5); White Blood Count 12.3 T/CUMM (4-12)
[2017-11-08 06:36] LABS: Calcium 7.4 MG/DL (8.5-10.1); Osmolality,Calculated 282.1 MOS/KG (273-304); Potassium 3.5 MMOL/L (3.5-5.1)
[2017-11-08 07:24] LABS: Hypochromasia 2+
[2017-11-08] MEDS: glyBURIDE 5 MG TABLET PO SCH (09:31)
[2017-11-08] MEDS: VANCOMYCIN INJ 1,250 MG in SODIUM CHLORIDE 0.9% 250 ML IV SCH ×2 (09:31→20:54)
[2017-11-08] MEDS: ENOXAPARIN 40 MG/0.4 ML SYRINGE SUBCUT SCH (09:31)
[2017-11-08] MEDS: INSULIN LISPRO 100 UNIT/ML SUBCUT SCH ×4 (09:32→20:54)
[2017-11-08] MEDS: ZINC OXIDE PASTE 113 GM TUBE TOP SCH ×2 (09:32→20:56)
[2017-11-08] MEDS: amLODIPine 10 MG TABLET PO SCH (11:29)
[2017-11-08] MEDS: ACETAMINOPHEN 500 MG TABLET PO SCH (11:30)
[2017-11-08] MEDS: ENALAPRIL 10 MG TABLET PO SCH (17:31)
[2017-11-08] MEDS: SODIUM CHLORIDE 0.9% 1,000 ML IV SCH (17:32)
[2017-11-08] MEDS: TAMSULOSIN 0.4 MG CAPSULE PO SCH (20:54)
[2017-11-09] MEDS: PIPERACILLIN/TAZOBACTAM 3,375 MG in SODIUM CHLORIDE 0.9% 100 ML IV SCH ×3 (00:01→17:27)
[2017-11-09] MEDS: ACETAMINOPHEN 325 MG TABLET PO PRN (03:48)
[2017-11-09 05:11] LABS: Basophils % 0.2 % (0.0-0.8); Eosinophils # 0.5 10*3/uL (0.0-0.87); Eosinophils % 4.7 % (0.00-10.9); Hemoglobin 9.9 GM/DL (14.0-18.0); Immature Granulocytes % 1.5 %; Immature Granulocytes Absolute 0.16 #; Lymphocytes # 2.5 10*3/uL (1.4-4.0); Mean Corpuscular HGB Conc 34.1 GM/DL (32-36); Mean Corpuscular Hemoglobin 28 PG (27-34); Mean Corpuscular Volume 81.9 FL (87-102); Mean Platelet Volume 10.1 FL (9.6-12.0); Monocytes # 0.6 10*3/uL (0.11-0.8); Monocytes % 5.7 % (1.7-12.7); Neutrophils % 64.9 % (38.7-73.9); Platelet Count 330 T/CUMM (130-400); Red Blood Count 3.54 MC/CUMM (3.8-5.5); White Blood Count 10.8 T/CUMM (4-12)
[2017-11-09 05:36] LABS: Calcium 7.7 MG/DL (8.5-10.1); Osmolality,Calculated 280.3 MOS/KG (273-304); Potassium 3.6 MMOL/L (3.5-5.1)
[2017-11-09 06:35] LABS: Hypochromasia 2+; Macrocytosis 2+; Target Cells 2+
[2017-11-09 06:36] LABS: Platelet Estimate Adequate
[2017-11-09] MEDS: INSULIN LISPRO 100 UNIT/ML SUBCUT SCH ×4 (08:38→21:24)
[2017-11-09] MEDS: ENOXAPARIN 40 MG/0.4 ML SYRINGE SUBCUT SCH (09:34)
[2017-11-09] MEDS: ACETAMINOPHEN 500 MG TABLET PO SCH (09:34)
[2017-11-09] MEDS: amLODIPine 10 MG TABLET PO SCH (09:34)
[2017-11-09] MEDS: glyBURIDE 5 MG TABLET PO SCH (09:35)
[2017-11-09] MEDS: SODIUM CHLORIDE 0.9% 1,000 ML IV SCH (11:16)
[2017-11-09] MEDS: TAMSULOSIN 0.4 MG CAPSULE PO SCH ×2 (11:16→21:24)
[2017-11-09] MEDS: ZINC OXIDE PASTE 113 GM TUBE TOP SCH ×2 (11:16→21:24)
[2017-11-09] MEDS: MEPERIDINE 25 MG/1 ML VIAL IV PRN (12:18)
[2017-11-09] MEDS ORDERED: SKIN HEALING OINT (AQUAPHOR) 50 GM TUBE TOP PRN (12:35)
[2017-11-09] MEDS: VANCOMYCIN INJ 1,250 MG in SODIUM CHLORIDE 0.9% 250 ML IV SCH ×2 (15:42→21:23)
[2017-11-09] MEDS: ENALAPRIL 10 MG TABLET PO SCH (18:25)
[2017-11-10] MEDS: PIPERACILLIN/TAZOBACTAM 3,375 MG in SODIUM CHLORIDE 0.9% 100 ML IV SCH ×2 (00:10→09:14)
[2017-11-10] MEDS: ACETAMINOPHEN 325 MG TABLET PO PRN (01:23)
[2017-11-10 06:46] LABS: Basophils % 0.2 % (0.0-0.8); Eosinophils # 0.6 10*3/uL (0.0-0.87); Eosinophils % 5.7 % (0.00-10.9); Hematocrit 28.5 VOL% (42.0-52.0); Hemoglobin 9.6 GM/DL (14.0-18.0); Immature Granulocytes % 1.2 %; Immature Granulocytes Absolute 0.12 #; Lymphocytes # 2.2 10*3/uL (1.4-4.0); Lymphocytes % 22.3 % (21.2-54.2); Mean Corpuscular HGB Conc 33.7 GM/DL (32-36); Mean Corpuscular Hemoglobin 28 PG (27-34); Mean Corpuscular Volume 82.1 FL (87-102); Mean Platelet Volume 9.9 FL (9.6-12.0); Monocytes # 0.5 10*3/uL (0.11-0.8); Monocytes % 5.1 % (1.7-12.7); Neutrophils # 6.4 10*3/uL (1.4-7.4); Neutrophils % 65.5 % (38.7-73.9); Platelet Count 331 T/CUMM (130-400); Red Blood Count 3.47 MC/CUMM (3.8-5.5); White Blood Count 9.7 T/CUMM (4-12)
[2017-11-10 07:10] LABS: Giant Platelets Few; Hypochromasia 1+; Ovalocytes Slight; Platelet Estimate Adequate
[2017-11-10 07:11] LABS: Macrocytosis Slight
[2017-11-10 07:18] LABS: Calcium 7.7 MG/DL (8.5-10.1); Osmolality,Calculated 278.1 MOS/KG (273-304); Potassium 3.7 MMOL/L (3.5-5.1)
[2017-11-10] MEDS: INSULIN LISPRO 100 UNIT/ML SUBCUT SCH ×4 (08:10→21:12)
[2017-11-10] MEDS: amLODIPine 10 MG TABLET PO SCH (09:14)
[2017-11-10] MEDS: ACETAMINOPHEN 500 MG TABLET PO SCH (09:14)
[2017-11-10] MEDS: ENOXAPARIN 40 MG/0.4 ML SYRINGE SUBCUT SCH (09:14)
[2017-11-10] MEDS: TAMSULOSIN 0.4 MG CAPSULE PO SCH ×2 (09:15→20:32)
[2017-11-10] MEDS: ZINC OXIDE PASTE 113 GM TUBE TOP SCH ×2 (09:15→20:34)
[2017-11-10] MEDS: glyBURIDE 5 MG TABLET PO SCH ×2 (10:23→11:41)
[2017-11-10] MEDS: MORPHINE 4 MG/1 ML VIAL IV PRN (10:56)
[2017-11-10] MEDS: CARVEDILOL 3.125 MG TABLET PO SCH ×2 (10:57→16:36)
[2017-11-10] MEDS: VANCOMYCIN INJ 1,250 MG in SODIUM CHLORIDE 0.9% 250 ML IV SCH (11:44)
[2017-11-10] MEDS: CLINDAMYCIN INJ 600 MG in PREMIX 1 EACH IV SCH ×2 (15:26→23:36)
[2017-11-10] MEDS: ENALAPRIL 10 MG TABLET PO SCH (16:36)
[2017-11-10] MEDS: ATORVASTATIN 40 MG TABLET PO SCH (20:32)
[2017-11-10] MEDS: SODIUM CHLORIDE 0.9% 1,000 ML IV SCH (20:34)
[2017-11-11 04:42] LABS: Basophils % 0.2 % (0.0-0.8); Eosinophils # 0.5 10*3/uL (0.0-0.87); Eosinophils % 4.1 % (0.00-10.9); Hematocrit 29.6 VOL% (42.0-52.0); Hemoglobin 10.1 GM/DL (14.0-18.0); Immature Granulocytes % 1.5 %; Immature Granulocytes Absolute 0.16 #; Lymphocytes # 2.1 10*3/uL (1.4-4.0); Lymphocytes % 19.4 % (21.2-54.2); Mean Corpuscular HGB Conc 34.1 GM/DL (32-36); Mean Corpuscular Hemoglobin 28 PG (27-34); Monocytes # 0.6 10*3/uL (0.11-0.8); Neutrophils # 7.7 10*3/uL (1.4-7.4); Neutrophils % 69.8 % (38.7-73.9); Platelet Count 346 T/CUMM (130-400); Red Blood Count 3.61 MC/CUMM (3.8-5.5); Red Cell Distribution Width 14.3 % (9.3-17.3)
[2017-11-11 05:11] LABS: Band Neutrophils 1 % (0-10); Eosinophils 6 % (0-10); Hypochromasia 1+; Lymphocytes 14 % (20-55); Macrocytosis Slight; Platelet Estimate Adequate; Segmented Neutrophils 71 % (50-85); Total Cells Counted 100
[2017-11-11 05:12] LABS: Giant Platelets Few; Polychromasia Slight
[2017-11-11 05:13] LABS: Target Cells Few
[2017-11-11 05:40] LABS: Potassium 3.6 MMOL/L (3.5-5.1)
[2017-11-11] MEDS: INSULIN LISPRO 100 UNIT/ML SUBCUT SCH ×4 (07:50→20:42)
[2017-11-11] MEDS: CLINDAMYCIN INJ 600 MG in PREMIX 1 EACH IV SCH ×2 (08:28→16:39)
[2017-11-11] MEDS: amLODIPine 10 MG TABLET PO SCH (08:29)
[2017-11-11] MEDS: ENOXAPARIN 40 MG/0.4 ML SYRINGE SUBCUT SCH (08:29)
[2017-11-11] MEDS: TAMSULOSIN 0.4 MG CAPSULE PO SCH ×2 (08:30→20:42)
[2017-11-11] MEDS: ACETAMINOPHEN 500 MG TABLET PO SCH (08:30)
[2017-11-11] MEDS: CARVEDILOL 3.125 MG TABLET PO SCH (08:30)
[2017-11-11] MEDS: glyBURIDE 5 MG TABLET PO SCH (08:31)
[2017-11-11] MEDS: ZINC OXIDE PASTE 113 GM TUBE TOP SCH ×2 (12:45→20:48)
[2017-11-11] MEDS: ASPIRIN EC 81 MG TABLET PO SCH (12:57)
[2017-11-11] MEDS: ENALAPRIL 10 MG TABLET PO SCH (16:37)
[2017-11-11] MEDS: CARVEDILOL 6.25 MG TABLET PO SCH (16:38)
[2017-11-11] MEDS: ATORVASTATIN 40 MG TABLET PO SCH (20:42)
[2017-11-12] MEDS: CLINDAMYCIN INJ 600 MG in PREMIX 1 EACH IV SCH ×2 (00:49→08:32)
[2017-11-12] MEDS: SODIUM CHLORIDE 0.9% 1,000 ML IV SCH (07:55)
[2017-11-12] MEDS: INSULIN LISPRO 100 UNIT/ML SUBCUT SCH ×2 (08:31→11:43)
[2017-11-12] MEDS: CARVEDILOL 6.25 MG TABLET PO SCH (08:34)
[2017-11-12] MEDS: ACETAMINOPHEN 500 MG TABLET PO SCH (08:34)
[2017-11-12] MEDS: glyBURIDE 5 MG TABLET PO SCH (08:34)
[2017-11-12] MEDS: amLODIPine 10 MG TABLET PO SCH (08:34)
[2017-11-12] MEDS: ASPIRIN EC 81 MG TABLET PO SCH (08:34)
[2017-11-12] MEDS: ENOXAPARIN 40 MG/0.4 ML SYRINGE SUBCUT SCH (08:34)
[2017-11-12] MEDS: TAMSULOSIN 0.4 MG CAPSULE PO SCH (08:34)
[2017-11-12] MEDS: ZINC OXIDE PASTE 113 GM TUBE TOP SCH (08:37)
[2017-11-12 11:23] VITALS: BP 121/62
[2017-11-12] MEDS ORDERED: CLINDAMYCIN 300 MG CAPSULE PO SCH (14:00)
== END 2017-11-12 14:15 | DRG 853 ==
LOC: EDUNIT# → EDBD → N.ED 13:50 → N.EDINP 16:00 → N.CC 17:22 → N.2E 11-07 18:34
PROVIDERS: ADMIT Family Medicine; ATTEND Family Medicine

== ENCOUNTER 2017-11-20 05:48 | Inpatient (IN) ==
[2017-11-20 06:21] LABS: Basophils % 0.4 % (0.0-0.8); Eosinophils # 0.5 10*3/uL (0.0-0.87); Eosinophils % 4.8 % (0.00-10.9); Hematocrit 31.5 VOL% (42.0-52.0); Hemoglobin 10.4 GM/DL (14.0-18.0); Immature Granulocytes % 0.4 %; Immature Granulocytes Absolute 0.04 #; Lymphocytes # 2.4 10*3/uL (1.4-4.0); Lymphocytes % 25.2 % (21.2-54.2); Mean Corpuscular Hemoglobin 27 PG (27-34); Mean Corpuscular Volume 82.9 FL (87-102); Mean Platelet Volume 10.3 FL (9.6-12.0); Monocytes # 0.6 10*3/uL (0.11-0.8); Neutrophils % 63.2 % (38.7-73.9); Platelet Count 325 T/CUMM (130-400); Red Cell Distribution Width 15.2 % (9.3-17.3); White Blood Count 9.5 T/CUMM (4-12)
[2017-11-20 06:47] LABS: INR 1.3; PT Patient Result 13.5 SECS; Partial Thromboplastin Time 25.7 SECS (0-40)
[2017-11-20 07:18] LABS: Calcium 9.1 MG/DL (8.5-10.1); Osmolality,Calculated 274.7 MOS/KG (273-304); Potassium 4.9 MMOL/L (3.5-5.1)
[2017-11-20] MEDS ORDERED: DEXTROSE 5% NACL 0.45% 1,000 ML IV SCH (08:30)
[2017-11-20] MEDS ORDERED: ONDANSETRON 4 MG/2 ML VIAL IV PRN (08:44)
[2017-11-20] MEDS ORDERED: ACETAMINOPHEN 325 MG TABLET PO PRN (08:44)
[2017-11-20] MEDS ORDERED: DOCUSATE SODIUM 100 MG CAPSULE PO SCH (09:00)
[2017-11-20] MEDS: SODIUM CHLORIDE 0.9% 1,000 ML IV SCH ×2 (12:15→21:00)
[2017-11-20] MEDS: PANTOPRAZOLE 40 MG TABLET PO SCH (12:15)
[2017-11-20] MEDS ORDERED: SKIN HEALING OINT (AQUAPHOR) 50 GM TUBE TOP PRN (12:23)
[2017-11-20] MEDS ORDERED: GLUCAGON 1 MG VIAL IM PRN (12:56)
[2017-11-20] MEDS ORDERED: DEXTROSE 50% 25 GM/50 ML VIAL IV PRN (12:56)
[2017-11-20] MEDS: amLODIPine 10 MG TABLET PO SCH (13:44)
[2017-11-20] MEDS ORDERED: INSULIN NPH/REGULAR 70/30 100 UNIT/ML SUBCUT SCH (16:30)
[2017-11-20] MEDS: ENALAPRIL 10 MG TABLET PO SCH (17:20)
[2017-11-20] MEDS: INSULIN LISPRO 100 UNIT/ML SUBCUT SCH ×2 (17:21→21:57)
[2017-11-20] MEDS: CARVEDILOL 6.25 MG TABLET PO SCH (17:21)
[2017-11-20] MEDS ORDERED: POLYETHYLENE GLYCOL POWDER 255 GM BOTTLE PO ONE (18:00)
[2017-11-20] MEDS: TAMSULOSIN 0.4 MG CAPSULE PO SCH (21:30)
[2017-11-20] MEDS: ATORVASTATIN 40 MG TABLET PO SCH (21:30)
[2017-11-20] MEDS: SULFAMETHOX/TRIMETHOPRIM 800-160 MG TABLET PO SCH (21:30)
[2017-11-20] MEDS: ZINC OXIDE PASTE 113 GM TUBE TOP SCH (21:56)
[2017-11-21 05:47] LABS: Basophils % 0.4 % (0.0-0.8); Eosinophils # 0.4 10*3/uL (0.0-0.87); Eosinophils % 5.8 % (0.00-10.9); Hematocrit 26.8 VOL% (42.0-52.0); Immature Granulocytes % 0.4 %; Immature Granulocytes Absolute 0.03 #; Lymphocytes % 29.6 % (21.2-54.2); Mean Corpuscular HGB Conc 33.6 GM/DL (32-36); Mean Corpuscular Hemoglobin 28 PG (27-34); Mean Corpuscular Volume 82.5 FL (87-102); Mean Platelet Volume 9.2 FL (9.6-12.0); Monocytes # 0.5 10*3/uL (0.11-0.8); Monocytes % 7.7 % (1.7-12.7); Neutrophils # 3.8 10*3/uL (1.4-7.4); Neutrophils % 56.1 % (38.7-73.9); Platelet Count 397 T/CUMM (130-400); Red Blood Count 3.25 MC/CUMM (3.8-5.5); White Blood Count 6.9 T/CUMM (4-12)
[2017-11-21] MEDS ORDERED: MAGNESIUM CITRATE 300 ML BOTTLE PO ONE (06:00)
[2017-11-21 06:16] LABS: Albumin 2.2 G/DL (3.4-5.0); Bilirubin,Total 0.4 MG/DL (0.2-1.0); Calcium 8.5 MG/DL (8.5-10.1); Osmolality,Calculated 281.1 MOS/KG (273-304); Potassium 4.1 MMOL/L (3.5-5.1); Total Protein 6.2 G/DL (6.4-8.3)
[2017-11-21] MEDS: INSULIN LISPRO 100 UNIT/ML SUBCUT SCH ×4 (09:00→22:28)
[2017-11-21] MEDS: glyBURIDE 5 MG TABLET PO SCH (10:15)
[2017-11-21] MEDS: CARVEDILOL 6.25 MG TABLET PO SCH ×2 (10:15→16:11)
[2017-11-21] MEDS: SULFAMETHOX/TRIMETHOPRIM 800-160 MG TABLET PO SCH ×2 (10:16→22:25)
[2017-11-21] MEDS: amLODIPine 10 MG TABLET PO SCH (10:16)
[2017-11-21] MEDS: TAMSULOSIN 0.4 MG CAPSULE PO SCH ×2 (10:16→22:25)
[2017-11-21] MEDS: PANTOPRAZOLE 40 MG TABLET PO SCH (10:16)
[2017-11-21] MEDS ORDERED: ePHEDrine 50 MG/ML AMP ONE (11:53)
[2017-11-21] MEDS: ZINC OXIDE PASTE 113 GM TUBE TOP SCH ×2 (14:18→22:26)
[2017-11-21] MEDS: ENALAPRIL 10 MG TABLET PO SCH (16:10)
[2017-11-21] MEDS: SODIUM CHLORIDE 0.9% 1,000 ML IV SCH (22:21)
[2017-11-21] MEDS: ATORVASTATIN 40 MG TABLET PO SCH (22:25)
[2017-11-22] MEDS: glyBURIDE 5 MG TABLET PO SCH (09:08)
[2017-11-22] MEDS: CARVEDILOL 6.25 MG TABLET PO SCH ×2 (09:09→16:09)
[2017-11-22] MEDS: SULFAMETHOX/TRIMETHOPRIM 800-160 MG TABLET PO SCH ×2 (09:09→21:18)
[2017-11-22] MEDS: TAMSULOSIN 0.4 MG CAPSULE PO SCH ×2 (09:09→21:19)
[2017-11-22] MEDS: INSULIN LISPRO 100 UNIT/ML SUBCUT SCH ×4 (09:09→21:19)
[2017-11-22] MEDS: PANTOPRAZOLE 40 MG TABLET PO SCH (09:09)
[2017-11-22] MEDS: amLODIPine 10 MG TABLET PO SCH (09:09)
[2017-11-22] MEDS: ZINC OXIDE PASTE 113 GM TUBE TOP SCH ×2 (09:10→21:21)
[2017-11-22] MEDS: ENALAPRIL 10 MG TABLET PO SCH (16:08)
[2017-11-22] MEDS: SODIUM CHLORIDE 0.9% 1,000 ML IV SCH (17:14)
[2017-11-22] MEDS: ATORVASTATIN 40 MG TABLET PO SCH (21:18)
[2017-11-23 07:03] LABS: Basophils % 0.2 % (0.0-0.8); Eosinophils # 0.5 10*3/uL (0.0-0.87); Eosinophils % 5.3 % (0.00-10.9); Hematocrit 26.4 VOL% (42.0-52.0); Hemoglobin 8.7 GM/DL (14.0-18.0); Immature Granulocytes % 0.3 %; Immature Granulocytes Absolute 0.03 #; Lymphocytes # 2.9 10*3/uL (1.4-4.0); Lymphocytes % 32.5 % (21.2-54.2); Mean Corpuscular Hemoglobin 28 PG (27-34); Mean Corpuscular Volume 84.9 FL (87-102); Mean Platelet Volume 9.6 FL (9.6-12.0); Monocytes # 0.6 10*3/uL (0.11-0.8); Monocytes % 7.1 % (1.7-12.7); Neutrophils # 4.8 10*3/uL (1.4-7.4); Neutrophils % 54.6 % (38.7-73.9); Platelet Count 348 T/CUMM (130-400); Red Blood Count 3.11 MC/CUMM (3.8-5.5); Red Cell Distribution Width 14.7 % (9.3-17.3); White Blood Count 8.8 T/CUMM (4-12)
[2017-11-23 07:43] LABS: Calcium 8.3 MG/DL (8.5-10.1); Osmolality,Calculated 280.3 MOS/KG (273-304)
[2017-11-23] MEDS: CARVEDILOL 6.25 MG TABLET PO SCH ×2 (09:17→16:50)
[2017-11-23] MEDS: SULFAMETHOX/TRIMETHOPRIM 800-160 MG TABLET PO SCH ×2 (09:17→22:19)
[2017-11-23] MEDS: amLODIPine 10 MG TABLET PO SCH (09:17)
[2017-11-23] MEDS: glyBURIDE 5 MG TABLET PO SCH (09:17)
[2017-11-23] MEDS: TAMSULOSIN 0.4 MG CAPSULE PO SCH ×2 (09:17→22:18)
[2017-11-23] MEDS: PANTOPRAZOLE 40 MG TABLET PO SCH (09:18)
[2017-11-23] MEDS: ZINC OXIDE PASTE 113 GM TUBE TOP SCH ×2 (09:22→22:20)
[2017-11-23] MEDS: INSULIN LISPRO 100 UNIT/ML SUBCUT SCH ×4 (10:04→22:25)
[2017-11-23] MEDS: SODIUM CHLORIDE 0.9% 1,000 ML IV SCH (13:47)
[2017-11-23] MEDS: ENALAPRIL 10 MG TABLET PO SCH (16:50)
[2017-11-23] MEDS: ATORVASTATIN 40 MG TABLET PO SCH (22:18)
[2017-11-24 01:57] LABS: Apearance,Urine CLEAR (Clear); Bacteria,Urine Occasional /HPF (Few); Bilirubin,Urine Negative (Negative); Blood, Urine Negative (Negative); Glucose,Urine (UA) Negative (Negative); Hyaline Casts,Urine 1 /LPF (0-3); Ketones,Urine Negative (Negative); Nitrite,Urine Negative (Negative); Protein,Urine Negative; RBC,Urine 7 /HPF (0-4); Squamous Epithelial Cell,Urine Occasional /HPF (0-10); Urine Color Straw (Yellow); Urine Urobilinogen < 2.0 EU/DL (0.2-1.0); WBC,Urine 73 /HPF (0-6)
[2017-11-24 07:22] LABS: Basophils % 0.2 % (0.0-0.8); Eosinophils # 0.5 10*3/uL (0.0-0.87); Eosinophils % 4.9 % (0.00-10.9); Hemoglobin 9.2 GM/DL (14.0-18.0); Immature Granulocytes % 0.5 %; Immature Granulocytes Absolute 0.05 #; Lymphocytes # 2.5 10*3/uL (1.4-4.0); Lymphocytes % 24.7 % (21.2-54.2); Mean Corpuscular HGB Conc 32.9 GM/DL (32-36); Mean Corpuscular Hemoglobin 28 PG (27-34); Mean Corpuscular Volume 85.1 FL (87-102); Mean Platelet Volume 10.9 FL (9.6-12.0); Monocytes # 0.5 10*3/uL (0.11-0.8); Monocytes % 5.2 % (1.7-12.7); NRBC # 0.07 10*3/uL; Neutrophils # 6.5 10*3/uL (1.4-7.4); Neutrophils % 64.5 % (38.7-73.9); Platelet Count 284 T/CUMM (130-400); Red Blood Count 3.29 MC/CUMM (3.8-5.5); Red Cell Distribution Width 15.1 % (9.3-17.3); White Blood Count 10.1 T/CUMM (4-12)
[2017-11-24 07:23] LABS: Calcium 8.3 MG/DL (8.5-10.1); Osmolality,Calculated 283.8 MOS/KG (273-304); Potassium 4.4 MMOL/L (3.5-5.1)
[2017-11-24] MEDS: INSULIN LISPRO 100 UNIT/ML SUBCUT SCH ×4 (07:57→20:28)
[2017-11-24 08:36] LABS: Giant Platelets Few; Hypochromasia 1+; Ovalocytes Slight; Platelet Estimate Adequate
[2017-11-24] MEDS ORDERED: PHENYLEPHRINE 1 MG/10 ML SYRINGE IV ONE (09:00)
[2017-11-24] MEDS ORDERED: GLYCOPYRROLATE 0.4 MG/2 ML VIAL ONE (09:00)
[2017-11-24] MEDS ORDERED: LIDOCAINE 2% 5 ML VIAL ONE (09:00)
[2017-11-24] MEDS ORDERED: PROPOFOL 200 MG/20 ML VIAL IV ONE (09:00)
[2017-11-24] MEDS: glyBURIDE 5 MG TABLET PO SCH (09:31)
[2017-11-24] MEDS: ZINC OXIDE PASTE 113 GM TUBE TOP SCH ×2 (09:52→20:20)
[2017-11-24] MEDS: CARVEDILOL 6.25 MG TABLET PO SCH ×2 (09:52→17:45)
[2017-11-24] MEDS: TAMSULOSIN 0.4 MG CAPSULE PO SCH ×2 (09:52→20:19)
[2017-11-24] MEDS: SULFAMETHOX/TRIMETHOPRIM 800-160 MG TABLET PO SCH ×2 (09:52→20:19)
[2017-11-24] MEDS: PANTOPRAZOLE 40 MG TABLET PO SCH (09:53)
[2017-11-24] MEDS: amLODIPine 10 MG TABLET PO SCH (09:53)
[2017-11-24] MEDS: SODIUM CHLORIDE 0.9% 1,000 ML IV SCH (14:07)
[2017-11-24] MEDS: ENALAPRIL 10 MG TABLET PO SCH (17:45)
[2017-11-24] MEDS: ATORVASTATIN 40 MG TABLET PO SCH (20:19)
[2017-11-25] MEDS: INSULIN LISPRO 100 UNIT/ML SUBCUT SCH ×4 (08:15→21:53)
[2017-11-25] MEDS: PANTOPRAZOLE 40 MG TABLET PO SCH (09:53)
[2017-11-25] MEDS: SULFAMETHOX/TRIMETHOPRIM 800-160 MG TABLET PO SCH ×2 (09:53→21:06)
[2017-11-25] MEDS: amLODIPine 10 MG TABLET PO SCH (09:53)
[2017-11-25] MEDS: CARVEDILOL 6.25 MG TABLET PO SCH ×2 (09:53→17:29)
[2017-11-25] MEDS: glyBURIDE 5 MG TABLET PO SCH (09:53)
[2017-11-25] MEDS: TAMSULOSIN 0.4 MG CAPSULE PO SCH ×2 (09:53→21:06)
[2017-11-25] MEDS: ZINC OXIDE PASTE 113 GM TUBE TOP SCH ×2 (09:54→21:08)
[2017-11-25] MEDS: ENALAPRIL 10 MG TABLET PO SCH (17:29)
[2017-11-25] MEDS: ATORVASTATIN 40 MG TABLET PO SCH (21:06)
[2017-11-26 06:17] LABS: Basophils % 0.4 % (0.0-0.8); Eosinophils # 0.6 10*3/uL (0.0-0.87); Eosinophils % 7.2 % (0.00-10.9); Hematocrit 28.7 VOL% (42.0-52.0); Hemoglobin 9.6 GM/DL (14.0-18.0); Immature Granulocytes % 0.3 %; Immature Granulocytes Absolute 0.02 #; Lymphocytes # 2.3 10*3/uL (1.4-4.0); Lymphocytes % 29.5 % (21.2-54.2); Mean Corpuscular HGB Conc 33.4 GM/DL (32-36); Mean Corpuscular Hemoglobin 28 PG (27-34); Mean Corpuscular Volume 82.7 FL (87-102); Mean Platelet Volume 9.8 FL (9.6-12.0); Monocytes # 0.5 10*3/uL (0.11-0.8); Monocytes % 6.8 % (1.7-12.7); Neutrophils # 4.3 10*3/uL (1.4-7.4); Neutrophils % 55.8 % (38.7-73.9); Platelet Count 326 T/CUMM (130-400); Red Blood Count 3.47 MC/CUMM (3.8-5.5); Red Cell Distribution Width 15.1 % (9.3-17.3); White Blood Count 7.7 T/CUMM (4-12)
[2017-11-26 07:09] LABS: Calcium 8.6 MG/DL (8.5-10.1)
[2017-11-26] MEDS: INSULIN LISPRO 100 UNIT/ML SUBCUT SCH ×2 (07:35→13:18)
[2017-11-26] MEDS: ZINC OXIDE PASTE 113 GM TUBE TOP SCH (08:55)
[2017-11-26] MEDS: CARVEDILOL 6.25 MG TABLET PO SCH (10:25)
[2017-11-26] MEDS: PANTOPRAZOLE 40 MG TABLET PO SCH (10:25)
[2017-11-26] MEDS: glyBURIDE 5 MG TABLET PO SCH (10:25)
[2017-11-26] MEDS: amLODIPine 10 MG TABLET PO SCH (10:25)
[2017-11-26] MEDS: TAMSULOSIN 0.4 MG CAPSULE PO SCH (10:25)
[2017-11-26] MEDS: SULFAMETHOX/TRIMETHOPRIM 800-160 MG TABLET PO SCH (10:25)
[2017-11-26 11:50] VITALS: BP 122/68
== END 2017-11-26 16:05 | DRG 378 ==
LOC: EDBD → EDUNIT# → N.ED 05:48 → N.EDINP 06:21 → N.2E 07:25
PROVIDERS: ADMIT Family Medicine; ATTEND Family Medicine

== ENCOUNTER 2017-12-21 09:50 | Inpatient (IN) ==
[2017-12-21] MEDS ORDERED: ACETAMINOPHEN 500 MG TABLET PO STA (10:12)
[2017-12-21] MEDS ORDERED: SODIUM CHLORIDE 0.9% 500 ML IV STA (10:12)
[2017-12-21] MEDS ORDERED: cefTRIAXone 1,000 MG in SODIUM CHLORIDE 0.9% 100 ML IV STA (10:12)
[2017-12-21 11:04] LABS: Basophils % 0.2 % (0.0-0.8); Eosinophils % 0.1 % (0.00-10.9); Hematocrit 27.2 VOL% (42.0-52.0); Hemoglobin 8.8 GM/DL (14.0-18.0); Immature Granulocytes % 0.6 %; Immature Granulocytes Absolute 0.07 #; Lymphocytes # 0.7 10*3/uL (1.4-4.0); Lymphocytes % 5.7 % (21.2-54.2); Mean Corpuscular HGB Conc 32.4 GM/DL (32-36); Mean Corpuscular Hemoglobin 27 PG (27-34); Mean Corpuscular Volume 84.7 FL (87-102); Monocytes # 0.9 10*3/uL (0.11-0.8); Monocytes % 7.4 % (1.7-12.7); Neutrophils # 10.7 10*3/uL (1.4-7.4); Platelet Count 194 T/CUMM (130-400); Red Blood Count 3.21 MC/CUMM (3.8-5.5); Red Cell Distribution Width 15.9 % (9.3-17.3); White Blood Count 12.4 T/CUMM (4-12)
[2017-12-21 11:23] LABS: Apearance,Urine CLOUDY (Clear); Bacteria,Urine Few /HPF (Few); Bilirubin,Urine Negative (Negative); Blood, Urine Small mg/dL (Negative); Glucose,Urine (UA) Negative (Negative); Ketones,Urine Negative (Negative); Nitrite,Urine Positive (Negative); Protein,Urine 100 MG/DL; RBC,Urine 96 /HPF (0-4); Urine Color Yellow (Yellow); Urine Specific Gravity 1.011 (1.001-1.035); WBC,Urine 4512 /HPF (0-6)
[2017-12-21 11:31] LABS: Albumin 2.3 G/DL (3.4-5.0); Bilirubin,Total 0.9 MG/DL (0.2-1.0); Lactic Acid 1.1 MMOL/L (0.4-2.0); Osmolality,Calculated 283.1 MOS/KG (273-304); Potassium 3.6 MMOL/L (3.5-5.1); Total Protein 6.7 G/DL (6.4-8.3)
[2017-12-21 11:55] LABS: Hypochromasia 2+
[2017-12-21] MEDS ORDERED: DEXTROSE 50% 25 GM/50 ML VIAL IV STA (11:56)
[2017-12-21] MEDS ORDERED: DEXTROSE 50% 25 GM/50 ML SYRINGE IV ONE (12:11)
[2017-12-21] MEDS ORDERED: SKIN HEALING OINT (AQUAPHOR) 50 GM TUBE TOP PRN (15:20)
[2017-12-21] MEDS ORDERED: ACETAMINOPHEN 325 MG TABLET PO PRN (15:20)
[2017-12-21] MEDS ORDERED: DEXTROSE 50% 25 GM/50 ML VIAL IV PRN (15:20)
[2017-12-21] MEDS ORDERED: ONDANSETRON 4 MG/2 ML VIAL IV PRN (15:20)
[2017-12-21] MEDS ORDERED: GLUCAGON 1 MG VIAL IM PRN (15:20)
[2017-12-21] MEDS ORDERED: MORPHINE 4 MG/1 ML VIAL IV PRN (15:20)
[2017-12-21] MEDS: SODIUM CHLORIDE 0.9% 1,000 ML IV SCH (15:41)
[2017-12-21] MEDS ORDERED: INSULIN LISPRO 100 UNIT/ML SUBCUT SCH (16:30)
[2017-12-21] MEDS: INSULIN REGULAR 100 UNIT/ML SUBCUT SCH ×2 (16:53→21:49)
[2017-12-21] MEDS: ENALAPRIL 10 MG TABLET PO SCH (17:58)
[2017-12-21] MEDS: LEVOFLOXACIN INJ 500 MG in PREMIX 1 EACH IV SCH (17:59)
[2017-12-21] MEDS: DOCUSATE SODIUM 100 MG CAPSULE PO SCH (21:46)
[2017-12-21] MEDS: TAMSULOSIN 0.4 MG CAPSULE PO SCH (21:46)
[2017-12-21] MEDS: CARVEDILOL 12.5 MG TABLET PO SCH (21:46)
[2017-12-21] MEDS: ATORVASTATIN 40 MG TABLET PO SCH (21:47)
[2017-12-21] MEDS: ZINC OXIDE PASTE 113 GM TUBE TOP SCH (21:51)
[2017-12-22] MEDS: SODIUM CHLORIDE 0.9% 1,000 ML IV SCH ×3 (00:19→17:31)
[2017-12-22 05:41] LABS: Basophils % 0.2 % (0.0-0.8); Hematocrit 26.6 VOL% (42.0-52.0); Hemoglobin 8.5 GM/DL (14.0-18.0); Immature Granulocytes % 1.5 %; Immature Granulocytes Absolute 0.17 #; Lymphocytes % 8.9 % (21.2-54.2); Mean Corpuscular Hemoglobin 27 PG (27-34); Mean Corpuscular Volume 85.8 FL (87-102); Mean Platelet Volume 10.5 FL (9.6-12.0); Monocytes # 1.2 10*3/uL (0.11-0.8); Monocytes % 10.7 % (1.7-12.7); Neutrophils # 8.7 10*3/uL (1.4-7.4); Neutrophils % 78.7 % (38.7-73.9); Platelet Count 185 T/CUMM (130-400); Red Cell Distribution Width 15.9 % (9.3-17.3); White Blood Count 11.1 T/CUMM (4-12)
[2017-12-22 06:04] LABS: Giant Platelets Few; Hypochromasia 1+; Lymphocytes 6 % (20-55); Platelet Estimate Adequate; Segmented Neutrophils 85 % (50-85); Total Cells Counted 100
[2017-12-22 06:13] LABS: Osmolality,Calculated 285.7 MOS/KG (273-304); Potassium 3.4 MMOL/L (3.5-5.1)
[2017-12-22] MEDS: PANTOPRAZOLE 40 MG TABLET PO SCH (07:17)
[2017-12-22] MEDS ORDERED: PANTOPRAZOLE 40 MG VIAL IV SCH (09:00)
[2017-12-22] MEDS: INSULIN REGULAR 100 UNIT/ML SUBCUT SCH ×4 (09:58→21:10)
[2017-12-22] MEDS: amLODIPine 10 MG TABLET PO SCH (10:07)
[2017-12-22] MEDS: CARVEDILOL 12.5 MG TABLET PO SCH ×2 (10:08→20:37)
[2017-12-22] MEDS: TAMSULOSIN 0.4 MG CAPSULE PO SCH ×2 (10:08→20:37)
[2017-12-22] MEDS: DOCUSATE SODIUM 100 MG CAPSULE PO SCH ×2 (10:10→20:37)
[2017-12-22] MEDS: ASPIRIN EC 81 MG TABLET PO SCH (10:10)
[2017-12-22] MEDS: ACETAMINOPHEN 500 MG TABLET PO SCH (10:10)
[2017-12-22] MEDS: ZINC OXIDE PASTE 113 GM TUBE TOP SCH ×2 (10:10→20:37)
[2017-12-22] MEDS: cefTRIAXone 1,000 MG in SYRINGE 1 EACH IV SCH (10:11)
[2017-12-22] MEDS: ENALAPRIL 10 MG TABLET PO SCH (17:32)
[2017-12-22] MEDS: LEVOFLOXACIN INJ 500 MG in PREMIX 1 EACH IV SCH (17:32)
[2017-12-22] MEDS: ATORVASTATIN 40 MG TABLET PO SCH (20:37)
[2017-12-23 01:21] LABS: Apearance,Urine CLEAR (Clear); Bacteria,Urine Occasional /HPF (Few); Bilirubin,Urine Negative (Negative); Blood, Urine Small mg/dL (Negative); Glucose,Urine (UA) Negative (Negative); Ketones,Urine Negative (Negative); Mucus,Urine Occasional /LPF (Occasional); Nitrite,Urine Negative (Negative); Protein,Urine Negative; RBC,Urine 3 /HPF (0-4); Squamous Epithelial Cell,Urine Occasional /HPF (0-10); Urine Color Yellow (Yellow); WBC,Urine 46 /HPF (0-6)
[2017-12-23] MEDS: SODIUM CHLORIDE 0.9% 1,000 ML IV SCH ×3 (02:10→21:06)
[2017-12-23] MEDS: PANTOPRAZOLE 40 MG TABLET PO SCH (06:18)
[2017-12-23 06:42] LABS: Basophils % 0.2 % (0.0-0.8); Eosinophils # 0.1 10*3/uL (0.0-0.87); Eosinophils % 0.8 % (0.00-10.9); Hemoglobin 9.3 GM/DL (14.0-18.0); Immature Granulocytes % 0.9 %; Immature Granulocytes Absolute 0.08 #; Lymphocytes # 1.3 10*3/uL (1.4-4.0); Lymphocytes % 14.1 % (21.2-54.2); Mean Corpuscular HGB Conc 33.2 GM/DL (32-36); Mean Corpuscular Hemoglobin 28 PG (27-34); Mean Corpuscular Volume 83.1 FL (87-102); Mean Platelet Volume 10.5 FL (9.6-12.0); Monocytes % 10.6 % (1.7-12.7); Neutrophils # 6.8 10*3/uL (1.4-7.4); Neutrophils % 73.4 % (38.7-73.9); Platelet Count 239 T/CUMM (130-400); Red Blood Count 3.37 MC/CUMM (3.8-5.5); Red Cell Distribution Width 16.3 % (9.3-17.3); White Blood Count 9.3 T/CUMM (4-12)
[2017-12-23 06:54] LABS: Osmolality,Calculated 279.1 MOS/KG (273-304); Potassium 3.5 MMOL/L (3.5-5.1)
[2017-12-23 07:15] LABS: Band Neutrophils 1 % (0-10); Hypochromasia 1+; Lymphocytes 16 % (20-55); Segmented Neutrophils 73 % (50-85); Total Cells Counted 100
[2017-12-23 07:16] LABS: Platelet Estimate Normal
[2017-12-23] MEDS: INSULIN REGULAR 100 UNIT/ML SUBCUT SCH ×4 (07:30→21:06)
[2017-12-23] MEDS: DOCUSATE SODIUM 100 MG CAPSULE PO SCH ×2 (09:53→21:04)
[2017-12-23] MEDS: ACETAMINOPHEN 500 MG TABLET PO SCH (09:53)
[2017-12-23] MEDS: amLODIPine 10 MG TABLET PO SCH (09:53)
[2017-12-23] MEDS: TAMSULOSIN 0.4 MG CAPSULE PO SCH ×2 (09:53→21:05)
[2017-12-23] MEDS: ZINC OXIDE PASTE 113 GM TUBE TOP SCH ×2 (09:53→21:05)
[2017-12-23] MEDS: cefTRIAXone 1,000 MG in SYRINGE 1 EACH IV SCH (09:53)
[2017-12-23] MEDS: ASPIRIN EC 81 MG TABLET PO SCH (10:01)
[2017-12-23] MEDS: CARVEDILOL 12.5 MG TABLET PO SCH ×2 (10:01→21:05)
[2017-12-23] MEDS: LEVOFLOXACIN INJ 750 MG in PREMIX 1 EACH IV SCH (16:13)
[2017-12-23] MEDS: ENALAPRIL 10 MG TABLET PO SCH (17:39)
[2017-12-23] MEDS: ATORVASTATIN 40 MG TABLET PO SCH (21:05)
[2017-12-24] MEDS: SODIUM CHLORIDE 0.9% 1,000 ML IV SCH ×2 (02:30→16:43)
[2017-12-24] MEDS: PANTOPRAZOLE 40 MG TABLET PO SCH (06:12)
[2017-12-24 06:43] LABS: Basophils % 0.2 % (0.0-0.8); Eosinophils # 0.1 10*3/uL (0.0-0.87); Eosinophils % 1.1 % (0.00-10.9); Hematocrit 28.7 VOL% (42.0-52.0); Hemoglobin 9.1 GM/DL (14.0-18.0); Immature Granulocytes % 0.9 %; Immature Granulocytes Absolute 0.08 #; Lymphocytes # 1.9 10*3/uL (1.4-4.0); Lymphocytes % 22.3 % (21.2-54.2); Mean Corpuscular HGB Conc 31.7 GM/DL (32-36); Mean Corpuscular Hemoglobin 26 PG (27-34); Mean Corpuscular Volume 83.2 FL (87-102); Mean Platelet Volume 11.1 FL (9.6-12.0); Monocytes # 0.8 10*3/uL (0.11-0.8); Monocytes % 9.5 % (1.7-12.7); Neutrophils # 5.6 10*3/uL (1.4-7.4); Platelet Count 217 T/CUMM (130-400); Red Blood Count 3.45 MC/CUMM (3.8-5.5); Red Cell Distribution Width 15.9 % (9.3-17.3); White Blood Count 8.5 T/CUMM (4-12)
[2017-12-24 06:57] LABS: Calcium 7.9 MG/DL (8.5-10.1); Osmolality,Calculated 277.1 MOS/KG (273-304); Potassium 3.7 MMOL/L (3.5-5.1)
[2017-12-24 07:27] LABS: Eosinophils 1 % (0-10); Hypochromasia 1+; Lymphocytes 14 % (20-55); Ovalocytes Slight; Platelet Estimate Adequate; Segmented Neutrophils 75 % (50-85); Total Cells Counted 100
[2017-12-24] MEDS: INSULIN REGULAR 100 UNIT/ML SUBCUT SCH ×4 (07:50→23:09)
[2017-12-24] MEDS: TAMSULOSIN 0.4 MG CAPSULE PO SCH ×2 (09:22→23:10)
[2017-12-24] MEDS: ASPIRIN EC 81 MG TABLET PO SCH (09:22)
[2017-12-24] MEDS: ACETAMINOPHEN 500 MG TABLET PO SCH (09:22)
[2017-12-24] MEDS: DOCUSATE SODIUM 100 MG CAPSULE PO SCH ×2 (09:23→23:10)
[2017-12-24] MEDS: CARVEDILOL 12.5 MG TABLET PO SCH ×2 (09:23→23:10)
[2017-12-24] MEDS: ZINC OXIDE PASTE 113 GM TUBE TOP SCH ×2 (09:23→23:13)
[2017-12-24] MEDS: cefTRIAXone 1,000 MG in SYRINGE 1 EACH IV SCH (09:23)
[2017-12-24] MEDS: amLODIPine 10 MG TABLET PO SCH (09:23)
[2017-12-24] MEDS: LEVOFLOXACIN INJ 750 MG in PREMIX 1 EACH IV SCH (14:21)
[2017-12-24] MEDS: ENALAPRIL 10 MG TABLET PO SCH (16:43)
[2017-12-24] MEDS: ATORVASTATIN 40 MG TABLET PO SCH (23:10)
[2017-12-25] MEDS: SODIUM CHLORIDE 0.9% 1,000 ML IV SCH ×2 (04:57→21:00)
[2017-12-25 05:14] LABS: Basophils % 0.1 % (0.0-0.8); Eosinophils # 0.1 10*3/uL (0.0-0.87); Eosinophils % 0.8 % (0.00-10.9); Hematocrit 27.8 VOL% (42.0-52.0); Hemoglobin 9.5 GM/DL (14.0-18.0); Immature Granulocytes Absolute 0.09 #; Lymphocytes # 2.1 10*3/uL (1.4-4.0); Mean Corpuscular HGB Conc 34.2 GM/DL (32-36); Mean Corpuscular Hemoglobin 28 PG (27-34); Mean Corpuscular Volume 80.8 FL (87-102); Mean Platelet Volume 10.9 FL (9.6-12.0); Monocytes # 0.8 10*3/uL (0.11-0.8); Monocytes % 9.3 % (1.7-12.7); Neutrophils # 5.7 10*3/uL (1.4-7.4); Neutrophils % 64.8 % (38.7-73.9); Platelet Count 253 T/CUMM (130-400); Red Blood Count 3.44 MC/CUMM (3.8-5.5); Red Cell Distribution Width 15.8 % (9.3-17.3); White Blood Count 8.7 T/CUMM (4-12)
[2017-12-25 05:46] LABS: Osmolality,Calculated 280.1 MOS/KG (273-304); Potassium 3.6 MMOL/L (3.5-5.1)
[2017-12-25] MEDS: PANTOPRAZOLE 40 MG TABLET PO SCH (07:19)
[2017-12-25] MEDS: ACETAMINOPHEN 500 MG TABLET PO SCH (08:54)
[2017-12-25] MEDS: amLODIPine 10 MG TABLET PO SCH (08:55)
[2017-12-25] MEDS: TAMSULOSIN 0.4 MG CAPSULE PO SCH ×2 (08:55→22:26)
[2017-12-25] MEDS: CARVEDILOL 12.5 MG TABLET PO SCH ×2 (08:55→22:26)
[2017-12-25] MEDS: ASPIRIN EC 81 MG TABLET PO SCH (08:55)
[2017-12-25] MEDS: glyBURIDE 5 MG TABLET PO SCH (08:55)
[2017-12-25] MEDS: DOCUSATE SODIUM 100 MG CAPSULE PO SCH ×2 (08:55→22:25)
[2017-12-25] MEDS: ZINC OXIDE PASTE 113 GM TUBE TOP SCH ×2 (08:56→22:24)
[2017-12-25] MEDS: INSULIN REGULAR 100 UNIT/ML SUBCUT SCH ×4 (08:56→22:24)
[2017-12-25] MEDS: LEVOFLOXACIN INJ 750 MG in PREMIX 1 EACH IV SCH (14:14)
[2017-12-25] MEDS: ENALAPRIL 10 MG TABLET PO SCH (16:48)
[2017-12-25] MEDS: ATORVASTATIN 40 MG TABLET PO SCH (22:26)
[2017-12-26 05:10] LABS: Basophils % 0.2 % (0.0-0.8); Eosinophils # 0.1 10*3/uL (0.0-0.87); Eosinophils % 1.2 % (0.00-10.9); Hematocrit 26.2 VOL% (42.0-52.0); Hemoglobin 8.9 GM/DL (14.0-18.0); Immature Granulocytes % 1.2 %; Immature Granulocytes Absolute 0.11 #; Lymphocytes # 2.4 10*3/uL (1.4-4.0); Mean Corpuscular Hemoglobin 28 PG (27-34); Mean Corpuscular Volume 81.6 FL (87-102); Monocytes # 0.7 10*3/uL (0.11-0.8); Monocytes % 7.8 % (1.7-12.7); Neutrophils # 5.8 10*3/uL (1.4-7.4); Neutrophils % 63.6 % (38.7-73.9); Platelet Count 270 T/CUMM (130-400); Red Blood Count 3.21 MC/CUMM (3.8-5.5); Red Cell Distribution Width 15.9 % (9.3-17.3); White Blood Count 9.1 T/CUMM (4-12)
[2017-12-26 05:26] LABS: Calcium 7.8 MG/DL (8.5-10.1); Osmolality,Calculated 285.8 MOS/KG (273-304); Potassium 3.6 MMOL/L (3.5-5.1)
[2017-12-26] MEDS: PANTOPRAZOLE 40 MG TABLET PO SCH (06:00)
[2017-12-26 06:56] LABS: Hypochromasia 2+; Polychromasia Slight
[2017-12-26] MEDS: INSULIN REGULAR 100 UNIT/ML SUBCUT SCH ×3 (08:32→16:19)
[2017-12-26] MEDS ORDERED: LEVOFLOXACIN 750 MG TABLET PO SCH (09:00)
[2017-12-26] MEDS: ACETAMINOPHEN 500 MG TABLET PO SCH (09:33)
[2017-12-26] MEDS: amLODIPine 10 MG TABLET PO SCH (09:33)
[2017-12-26] MEDS: CARVEDILOL 12.5 MG TABLET PO SCH (09:34)
[2017-12-26] MEDS: glyBURIDE 5 MG TABLET PO SCH (09:34)
[2017-12-26] MEDS: DOCUSATE SODIUM 100 MG CAPSULE PO SCH (09:34)
[2017-12-26] MEDS: TAMSULOSIN 0.4 MG CAPSULE PO SCH (09:34)
[2017-12-26] MEDS: ASPIRIN EC 81 MG TABLET PO SCH (09:34)
[2017-12-26] MEDS: ZINC OXIDE PASTE 113 GM TUBE TOP SCH (09:35)
[2017-12-26] MEDS: SODIUM CHLORIDE 0.9% 1,000 ML IV SCH (13:07)
[2017-12-26 15:47] VITALS: BP 127/62
== END 2017-12-26 17:19 | DRG 872 ==
LOC: EDUNIT# → EDBD → N.ED 09:50 → N.EDINP 12:18 → N.2E 13:51
PROVIDERS: ADMIT Family Medicine; ATTEND Family Medicine

== ENCOUNTER 2018-06-24 07:13 | Observation (INO) ==
[2018-06-24 07:43] LABS: Basophils % 0.3 % (0.0-0.8); Eosinophils # 0.2 10*3/uL (0.0-0.87); Eosinophils % 2.4 % (0.00-10.9); Hematocrit 37.6 VOL% (42.0-52.0); Hemoglobin 12.2 GM/DL (14.0-18.0); Immature Granulocytes % 0.3 %; Immature Granulocytes Absolute 0.02 #; Lymphocytes # 1.8 10*3/uL (1.4-4.0); Lymphocytes % 28.8 % (21.2-54.2); Mean Corpuscular HGB Conc 32.4 GM/DL (32-36); Mean Corpuscular Hemoglobin 28 PG (27-34); Mean Platelet Volume 10.4 FL (9.6-12.0); Monocytes # 0.5 10*3/uL (0.11-0.8); Monocytes % 7.1 % (1.7-12.7); Neutrophils # 3.9 10*3/uL (1.4-7.4); Neutrophils % 61.1 % (38.7-73.9); Platelet Count 209 T/CUMM (130-400); Red Blood Count 4.37 MC/CUMM (3.8-5.5); Red Cell Distribution Width 13.8 % (9.3-17.3); White Blood Count 6.3 T/CUMM (4-12)
[2018-06-24 07:52] LABS: INR 1.2
[2018-06-24 08:00] LABS: Albumin 3.3 G/DL (3.4-5.0); Bilirubin,Total 0.5 MG/DL (0.2-1.0); Calcium 8.5 MG/DL (8.5-10.1); Osmolality,Calculated 281.1 MOS/KG (273-304); Potassium 3.9 MMOL/L (3.5-5.1); Total Protein 7.1 G/DL (6.4-8.3)
[2018-06-24] MEDS ORDERED: ONDANSETRON 4 MG/2 ML VIAL IV PRN (08:16)
[2018-06-24] MEDS ORDERED: ACETAMINOPHEN 325 MG TABLET PO PRN (08:16)
[2018-06-24] MEDS: SODIUM CHLORIDE 0.9% 1,000 ML IV SCH ×2 (08:25→21:28)
[2018-06-24] MEDS: DOCUSATE SODIUM 100 MG CAPSULE PO SCH ×2 (11:10→21:27)
[2018-06-24] MEDS: PANTOPRAZOLE 40 MG TABLET PO SCH (11:11)
[2018-06-24] MEDS ORDERED: GLUCAGON 1 MG VIAL IM PRN (13:27)
[2018-06-24] MEDS ORDERED: DEXTROSE 50% 25 GM/50 ML VIAL IV PRN (13:27)
[2018-06-24 15:19] LABS: Hematocrit 32.4 VOL% (42.0-52.0); Hemoglobin 10.3 GM/DL (14.0-18.0)
[2018-06-24] MEDS: ENALAPRIL 10 MG TABLET PO SCH (17:12)
[2018-06-24] MEDS: CARVEDILOL 12.5 MG TABLET PO SCH (17:12)
[2018-06-24] MEDS: INSULIN LISPRO 100 UNIT/ML SUBCUT SCH ×2 (17:13→21:27)
[2018-06-24 19:43] LABS: Hematocrit 32.1 VOL% (42.0-52.0); Hemoglobin 10.4 GM/DL (14.0-18.0)
[2018-06-24] MEDS: ATORVASTATIN 40 MG TABLET PO SCH (21:27)
[2018-06-24] MEDS: TAMSULOSIN 0.4 MG CAPSULE PO SCH (21:27)
[2018-06-24 21:50] LABS: Apearance,Urine CLOUDY (Clear); Bilirubin,Urine Negative (Negative); Blood, Urine Negative (Negative); Glucose,Urine (UA) Negative (Negative); Ketones,Urine Negative (Negative); Nitrite,Urine Negative (Negative); Protein,Urine Negative; RBC,Urine 2 /HPF (0-4); Squamous Epithelial Cell,Urine Occasional /HPF (0-10); Urine Color Straw (Yellow); Urine Specific Gravity 1.005 (1.001-1.035); Urine Urobilinogen < 2.0 EU/DL (0.2-1.0); WBC,Urine 1 /HPF (0-6)
[2018-06-25 01:33] LABS: Hematocrit 30.4 VOL% (42.0-52.0); Hemoglobin 9.9 GM/DL (14.0-18.0)
[2018-06-25 04:58] LABS: Basophils % 0.3 % (0.0-0.8); Eosinophils # 0.1 10*3/uL (0.0-0.87); Eosinophils % 1.6 % (0.00-10.9); Hematocrit 31.8 VOL% (42.0-52.0); Hemoglobin 10.2 GM/DL (14.0-18.0); Immature Granulocytes % 0.3 %; Immature Granulocytes Absolute 0.02 #; Lymphocytes # 2.3 10*3/uL (1.4-4.0); Lymphocytes % 32.1 % (21.2-54.2); Mean Corpuscular HGB Conc 32.1 GM/DL (32-36); Mean Corpuscular Hemoglobin 28 PG (27-34); Mean Corpuscular Volume 86.2 FL (87-102); Mean Platelet Volume 10.3 FL (9.6-12.0); Monocytes # 0.6 10*3/uL (0.11-0.8); Monocytes % 7.6 % (1.7-12.7); Neutrophils # 4.2 10*3/uL (1.4-7.4); Neutrophils % 58.1 % (38.7-73.9); Platelet Count 203 T/CUMM (130-400); Red Blood Count 3.69 MC/CUMM (3.8-5.5); Red Cell Distribution Width 13.9 % (9.3-17.3); White Blood Count 7.3 T/CUMM (4-12)
[2018-06-25 05:14] LABS: Calcium 8.3 MG/DL (8.5-10.1); Osmolality,Calculated 282.8 MOS/KG (273-304); Potassium 4.1 MMOL/L (3.5-5.1)
[2018-06-25 07:56] LABS: Hematocrit 32.3 VOL% (42.0-52.0); Hemoglobin 10.4 GM/DL (14.0-18.0)
[2018-06-25] MEDS: INSULIN LISPRO 100 UNIT/ML SUBCUT SCH ×4 (07:58→21:44)
[2018-06-25] MEDS: PANTOPRAZOLE 40 MG TABLET PO SCH (09:55)
[2018-06-25] MEDS: MULTIVITAMIN (CENTRUM) TABLET PO SCH (09:55)
[2018-06-25] MEDS: glyBURIDE 5 MG TABLET PO SCH (09:55)
[2018-06-25] MEDS: TAMSULOSIN 0.4 MG CAPSULE PO SCH ×2 (09:55→21:41)
[2018-06-25] MEDS: CARVEDILOL 12.5 MG TABLET PO SCH ×2 (09:55→16:39)
[2018-06-25] MEDS: DOCUSATE SODIUM 100 MG CAPSULE PO SCH ×2 (09:55→21:44)
[2018-06-25] MEDS: amLODIPine 10 MG TABLET PO SCH (09:56)
[2018-06-25 14:02] LABS: Hematocrit 31.8 VOL% (42.0-52.0); Hemoglobin 10.2 GM/DL (14.0-18.0)
[2018-06-25] MEDS: ENALAPRIL 10 MG TABLET PO SCH (16:39)
[2018-06-25] MEDS: ATORVASTATIN 40 MG TABLET PO SCH (21:41)
[2018-06-26 06:01] LABS: Basophils % 0.2 % (0.0-0.8); Eosinophils # 0.1 10*3/uL (0.0-0.87); Eosinophils % 1.9 % (0.00-10.9); Hematocrit 31.4 VOL% (42.0-52.0); Hemoglobin 10.3 GM/DL (14.0-18.0); Immature Granulocytes % 0.5 %; Immature Granulocytes Absolute 0.03 #; Lymphocytes # 1.6 10*3/uL (1.4-4.0); Lymphocytes % 25.4 % (21.2-54.2); Mean Corpuscular HGB Conc 32.8 GM/DL (32-36); Mean Corpuscular Hemoglobin 29 PG (27-34); Mean Corpuscular Volume 86.7 FL (87-102); Mean Platelet Volume 10.5 FL (9.6-12.0); Monocytes # 0.5 10*3/uL (0.11-0.8); Monocytes % 7.7 % (1.7-12.7); Neutrophils # 4.1 10*3/uL (1.4-7.4); Neutrophils % 64.3 % (38.7-73.9); Platelet Count 195 T/CUMM (130-400); Red Blood Count 3.62 MC/CUMM (3.8-5.5); Red Cell Distribution Width 13.7 % (9.3-17.3); White Blood Count 6.3 T/CUMM (4-12)
[2018-06-26] MEDS: INSULIN LISPRO 100 UNIT/ML SUBCUT SCH ×2 (07:49→11:48)
[2018-06-26] MEDS: glyBURIDE 5 MG TABLET PO SCH (09:01)
[2018-06-26] MEDS: TAMSULOSIN 0.4 MG CAPSULE PO SCH (09:01)
[2018-06-26] MEDS: MULTIVITAMIN (CENTRUM) TABLET PO SCH (09:02)
[2018-06-26] MEDS: PANTOPRAZOLE 40 MG TABLET PO SCH (09:02)
[2018-06-26] MEDS: amLODIPine 10 MG TABLET PO SCH (09:02)
[2018-06-26] MEDS: CARVEDILOL 12.5 MG TABLET PO SCH (09:02)
[2018-06-26] MEDS: DOCUSATE SODIUM 100 MG CAPSULE PO SCH (09:02)
[2018-06-26 11:47] VITALS: BP 121/64
[2018-06-26] MEDS: SODIUM CHLORIDE 0.9% 1,000 ML IV SCH (11:48)
== END 2018-06-26 12:50 ==
LOC: EDBD → EDUNIT# → N.ED 07:13 → N.EDINP 07:13 → N.2W 08:39 → N.2E 12:59
PROVIDERS: ADMIT Family Medicine; ATTEND Family Medicine

== ENCOUNTER 2018-06-29 09:48 | Inpatient (IN) ==
[2018-06-29] MEDS ORDERED: ONDANSETRON 4 MG/2 ML VIAL IV STA (10:21)
[2018-06-29] MEDS ORDERED: PANTOPRAZOLE 40 MG VIAL IV STA (10:21)
[2018-06-29] MEDS ORDERED: SODIUM CHLORIDE 0.9% 500 ML IV STA (10:21)
[2018-06-29 11:21] LABS: Basophils % 0.3 % (0.0-0.8); Eosinophils # 0.1 10*3/uL (0.0-0.87); Eosinophils % 1.9 % (0.00-10.9); Hematocrit 30.4 VOL% (42.0-52.0); Hemoglobin 9.8 GM/DL (14.0-18.0); Immature Granulocytes % 0.4 %; Immature Granulocytes Absolute 0.03 #; Lymphocytes # 1.8 10*3/uL (1.4-4.0); Lymphocytes % 26.2 % (21.2-54.2); Mean Corpuscular HGB Conc 32.2 GM/DL (32-36); Mean Corpuscular Hemoglobin 28 PG (27-34); Mean Corpuscular Volume 86.9 FL (87-102); Mean Platelet Volume 10.2 FL (9.6-12.0); Monocytes # 0.5 10*3/uL (0.11-0.8); Monocytes % 7.2 % (1.7-12.7); Neutrophils # 4.5 10*3/uL (1.4-7.4); Platelet Count 209 T/CUMM (130-400); Red Cell Distribution Width 13.5 % (9.3-17.3)
[2018-06-29 11:30] LABS: INR 1.2; PT Patient Result 12.9 SECS
[2018-06-29 11:47] LABS: Albumin 3.2 G/DL (3.4-5.0); Bilirubin,Total 0.4 MG/DL (0.2-1.0); Calcium 8.5 MG/DL (8.5-10.1); Osmolality,Calculated 285.1 MOS/KG (273-304); Potassium 4.2 MMOL/L (3.5-5.1); Total Protein 6.5 G/DL (6.4-8.3)
[2018-06-29] MEDS ORDERED: ACETAMINOPHEN 325 MG TABLET PO PRN (14:37)
[2018-06-29] MEDS ORDERED: MORPHINE 4 MG/1 ML VIAL IV PRN (14:37)
[2018-06-29] MEDS ORDERED: DEXTROSE 50% 25 GM/50 ML VIAL IV PRN (14:37)
[2018-06-29] MEDS ORDERED: ONDANSETRON 4 MG/2 ML VIAL IV PRN (14:37)
[2018-06-29] MEDS ORDERED: GLUCAGON 1 MG VIAL IM PRN (14:37)
[2018-06-29] MEDS: SODIUM CHLORIDE 0.9% 1,000 ML IV SCH (14:59)
[2018-06-29 15:45] LABS: Basophils % 0.3 % (0.0-0.8); Eosinophils # 0.2 10*3/uL (0.0-0.87); Eosinophils % 2.1 % (0.00-10.9); Hematocrit 30.2 VOL% (42.0-52.0); Hemoglobin 9.6 GM/DL (14.0-18.0); Immature Granulocytes % 0.1 %; Immature Granulocytes Absolute 0.01 #; Lymphocytes # 2.4 10*3/uL (1.4-4.0); Mean Corpuscular HGB Conc 31.8 GM/DL (32-36); Mean Corpuscular Hemoglobin 28 PG (27-34); Mean Corpuscular Volume 87.3 FL (87-102); Mean Platelet Volume 11.4 FL (9.6-12.0); Monocytes # 0.5 10*3/uL (0.11-0.8); Monocytes % 7.7 % (1.7-12.7); Neutrophils # 3.9 10*3/uL (1.4-7.4); Neutrophils % 55.8 % (38.7-73.9); Platelet Count 196 T/CUMM (130-400); Red Blood Count 3.46 MC/CUMM (3.8-5.5); Red Cell Distribution Width 13.6 % (9.3-17.3)
[2018-06-29] MEDS: INSULIN LISPRO 100 UNIT/ML SUBCUT SCH ×2 (17:33→22:14)
[2018-06-29] MEDS: ENALAPRIL 10 MG TABLET PO SCH (17:44)
[2018-06-29] MEDS: CARVEDILOL 12.5 MG TABLET PO SCH (17:44)
[2018-06-29] MEDS ORDERED: INSULIN REGULAR 100 UNIT/ML SUBCUT SCH (18:00)
[2018-06-29] MEDS: TAMSULOSIN 0.4 MG CAPSULE PO SCH (21:48)
[2018-06-29] MEDS: DOCUSATE SODIUM 100 MG CAPSULE PO SCH (21:48)
[2018-06-29] MEDS: ATORVASTATIN 40 MG TABLET PO SCH (21:48)
[2018-06-30] MEDS: SODIUM CHLORIDE 0.9% 1,000 ML IV SCH ×2 (05:06→16:54)
[2018-06-30 06:10] LABS: Albumin 2.9 G/DL (3.4-5.0); Bilirubin,Total 0.6 MG/DL (0.2-1.0); Calcium 8.1 MG/DL (8.5-10.1); Osmolality,Calculated 283.7 MOS/KG (273-304); Potassium 3.5 MMOL/L (3.5-5.1); Total Protein 5.8 G/DL (6.4-8.3)
[2018-06-30] MEDS: INSULIN LISPRO 100 UNIT/ML SUBCUT SCH ×4 (07:22→22:23)
[2018-06-30 08:41] LABS: Basophils % 0.3 % (0.0-0.8); Eosinophils # 0.1 10*3/uL (0.0-0.87); Eosinophils % 2.2 % (0.00-10.9); Hematocrit 26.9 VOL% (42.0-52.0); Hemoglobin 8.7 GM/DL (14.0-18.0); Immature Granulocytes % 0.5 %; Immature Granulocytes Absolute 0.03 #; Lymphocytes # 1.8 10*3/uL (1.4-4.0); Lymphocytes % 30.7 % (21.2-54.2); Mean Corpuscular HGB Conc 32.3 GM/DL (32-36); Mean Corpuscular Hemoglobin 28 PG (27-34); Mean Corpuscular Volume 87.1 FL (87-102); Mean Platelet Volume 11.1 FL (9.6-12.0); Monocytes # 0.4 10*3/uL (0.11-0.8); Monocytes % 7.1 % (1.7-12.7); Neutrophils # 3.5 10*3/uL (1.4-7.4); Neutrophils % 59.2 % (38.7-73.9); Platelet Count 192 T/CUMM (130-400); Red Blood Count 3.09 MC/CUMM (3.8-5.5); Red Cell Distribution Width 13.9 % (9.3-17.3); White Blood Count 5.9 T/CUMM (4-12)
[2018-06-30] MEDS: amLODIPine 10 MG TABLET PO SCH (09:47)
[2018-06-30] MEDS: CARVEDILOL 12.5 MG TABLET PO SCH ×2 (09:47→16:54)
[2018-06-30] MEDS: MULTIVITAMIN (CENTRUM) TABLET PO SCH (09:47)
[2018-06-30] MEDS: glyBURIDE 5 MG TABLET PO SCH (09:47)
[2018-06-30] MEDS: TAMSULOSIN 0.4 MG CAPSULE PO SCH ×2 (09:47→22:24)
[2018-06-30] MEDS: DOCUSATE SODIUM 100 MG CAPSULE PO SCH ×2 (09:47→22:24)
[2018-06-30] MEDS: PANTOPRAZOLE 40 MG VIAL IV SCH (09:48)
[2018-06-30] MEDS: FLUTICASONE 50 MCG NASAL SPRAY 16 GM BOTTLE BOTH NARES SCH (09:48)
[2018-06-30 14:21] LABS: Hematocrit 28.3 VOL% (42.0-52.0); Hemoglobin 8.9 GM/DL (14.0-18.0)
[2018-06-30] MEDS: ENALAPRIL 10 MG TABLET PO SCH (16:54)
[2018-06-30] MEDS: ATORVASTATIN 40 MG TABLET PO SCH (22:24)
[2018-07-01 05:31] LABS: Basophils % 0.3 % (0.0-0.8); Eosinophils # 0.1 10*3/uL (0.0-0.87); Eosinophils % 2.1 % (0.00-10.9); Hematocrit 27.1 VOL% (42.0-52.0); Hemoglobin 8.8 GM/DL (14.0-18.0); Immature Granulocytes % 0.3 %; Immature Granulocytes Absolute 0.02 #; Lymphocytes # 2.4 10*3/uL (1.4-4.0); Lymphocytes % 36.1 % (21.2-54.2); Mean Corpuscular HGB Conc 32.5 GM/DL (32-36); Mean Corpuscular Hemoglobin 28 PG (27-34); Mean Corpuscular Volume 86.6 FL (87-102); Mean Platelet Volume 10.4 FL (9.6-12.0); Monocytes # 0.5 10*3/uL (0.11-0.8); Monocytes % 7.5 % (1.7-12.7); Neutrophils # 3.5 10*3/uL (1.4-7.4); Neutrophils % 53.7 % (38.7-73.9); Platelet Count 190 T/CUMM (130-400); Red Blood Count 3.13 MC/CUMM (3.8-5.5); Red Cell Distribution Width 13.7 % (9.3-17.3); White Blood Count 6.6 T/CUMM (4-12)
[2018-07-01] MEDS: SODIUM CHLORIDE 0.9% 1,000 ML IV SCH ×2 (05:46→21:12)
[2018-07-01] MEDS: glyBURIDE 5 MG TABLET PO SCH (09:05)
[2018-07-01] MEDS: PANTOPRAZOLE 40 MG VIAL IV SCH (09:05)
[2018-07-01] MEDS: MULTIVITAMIN (CENTRUM) TABLET PO SCH (09:05)
[2018-07-01] MEDS: DOCUSATE SODIUM 100 MG CAPSULE PO SCH ×2 (09:05→21:08)
[2018-07-01] MEDS: CARVEDILOL 12.5 MG TABLET PO SCH ×2 (09:05→18:12)
[2018-07-01] MEDS: TAMSULOSIN 0.4 MG CAPSULE PO SCH ×2 (09:05→21:08)
[2018-07-01] MEDS: amLODIPine 10 MG TABLET PO SCH (09:05)
[2018-07-01] MEDS: FLUTICASONE 50 MCG NASAL SPRAY 16 GM BOTTLE BOTH NARES SCH (09:06)
[2018-07-01] MEDS: INSULIN LISPRO 100 UNIT/ML SUBCUT SCH ×3 (10:43→21:09)
[2018-07-01] MEDS ORDERED: DEXTROSE 50% 25 GM/50 ML VIAL IV PRN (12:29)
[2018-07-01] MEDS ORDERED: GLUCAGON 1 MG VIAL IM PRN (12:29)
[2018-07-01] MEDS: ENALAPRIL 10 MG TABLET PO SCH (18:05)
[2018-07-01] MEDS: ATORVASTATIN 40 MG TABLET PO SCH (21:09)
[2018-07-02] MEDS: FLUTICASONE 50 MCG NASAL SPRAY 16 GM BOTTLE BOTH NARES SCH (08:58)
[2018-07-02] MEDS: MULTIVITAMIN (CENTRUM) TABLET PO SCH (08:59)
[2018-07-02] MEDS: TAMSULOSIN 0.4 MG CAPSULE PO SCH (08:59)
[2018-07-02] MEDS: DOCUSATE SODIUM 100 MG CAPSULE PO SCH (08:59)
[2018-07-02] MEDS: amLODIPine 10 MG TABLET PO SCH (08:59)
[2018-07-02] MEDS: glyBURIDE 5 MG TABLET PO SCH (08:59)
[2018-07-02] MEDS: PANTOPRAZOLE 40 MG VIAL IV SCH (09:00)
[2018-07-02] MEDS: CARVEDILOL 12.5 MG TABLET PO SCH (09:01)
[2018-07-02] MEDS: INSULIN LISPRO 100 UNIT/ML SUBCUT SCH ×2 (09:01→13:06)
[2018-07-02 11:38] VITALS: BP 112/55
[2018-07-02 11:38] LABS: Hematocrit 27.7 VOL% (42.0-52.0); Hemoglobin 9.1 GM/DL (14.0-18.0)
[2018-07-02] MEDS: SODIUM CHLORIDE 0.9% 1,000 ML IV SCH (13:07)
== END 2018-07-02 15:31 | DRG 379 ==
LOC: EDUNIT# → EDBD → N.ED 09:48 → N.EDINP 09:48 → N.2E 13:43
PROVIDERS: ADMIT Family Medicine; ATTEND Family Medicine

== ENCOUNTER 2018-07-03 12:51 | Inpatient (IN) ==
[2018-07-03] MEDS ORDERED: PANTOPRAZOLE 40 MG VIAL IV STA (13:19)
[2018-07-03] MEDS ORDERED: ONDANSETRON 4 MG/2 ML VIAL IV PRN ×2 (13:19→17:43)
[2018-07-03 14:27] LABS: Basophils % 0.3 % (0.0-0.8); Eosinophils # 0.2 10*3/uL (0.0-0.87); Eosinophils % 2.4 % (0.00-10.9); Hematocrit 28.7 VOL% (42.0-52.0); Hemoglobin 9.3 GM/DL (14.0-18.0); Immature Granulocytes % 0.4 %; Immature Granulocytes Absolute 0.03 #; Lymphocytes # 2.2 10*3/uL (1.4-4.0); Mean Corpuscular HGB Conc 32.4 GM/DL (32-36); Mean Corpuscular Hemoglobin 28 PG (27-34); Mean Corpuscular Volume 87.2 FL (87-102); Mean Platelet Volume 10.2 FL (9.6-12.0); Monocytes # 0.5 10*3/uL (0.11-0.8); Neutrophils # 3.9 10*3/uL (1.4-7.4); Neutrophils % 57.9 % (38.7-73.9); Platelet Count 231 T/CUMM (130-400); Red Blood Count 3.29 MC/CUMM (3.8-5.5); Red Cell Distribution Width 14.3 % (9.3-17.3); White Blood Count 6.7 T/CUMM (4-12)
[2018-07-03 14:40] LABS: Albumin 3.3 G/DL (3.4-5.0); Bilirubin,Total 0.4 MG/DL (0.2-1.0); Calcium 8.9 MG/DL (8.5-10.1); Potassium 4.1 MMOL/L (3.5-5.1); Total Protein 6.7 G/DL (6.4-8.3)
[2018-07-03 15:44] LABS: INR 1.2; PT Patient Result 13.1 SECS; Partial Thromboplastin Time 29.4 SECS (0-40)
[2018-07-03] MEDS ORDERED: ACETAMINOPHEN 325 MG TABLET PO PRN (17:43)
[2018-07-03] MEDS: SODIUM CHLORIDE 0.9% 1,000 ML IV SCH (17:52)
[2018-07-03] MEDS: ATORVASTATIN 40 MG TABLET PO SCH (21:01)
[2018-07-03] MEDS: DOCUSATE SODIUM 100 MG CAPSULE PO SCH (21:02)
[2018-07-03] MEDS: TAMSULOSIN 0.4 MG CAPSULE PO SCH (21:03)
[2018-07-03] MEDS: INSULIN LISPRO 100 UNIT/ML SUBCUT SCH (21:03)
[2018-07-04] MEDS: SODIUM CHLORIDE 0.9% 1,000 ML IV SCH ×3 (01:40→20:58)
[2018-07-04 05:57] LABS: Basophils % 0.4 % (0.0-0.8); Eosinophils # 0.2 10*3/uL (0.0-0.87); Hematocrit 28.2 VOL% (42.0-52.0); Hemoglobin 8.9 GM/DL (14.0-18.0); Immature Granulocytes % 0.2 %; Immature Granulocytes Absolute 0.01 #; Lymphocytes # 1.8 10*3/uL (1.4-4.0); Lymphocytes % 31.1 % (21.2-54.2); Mean Corpuscular HGB Conc 31.6 GM/DL (32-36); Mean Corpuscular Hemoglobin 28 PG (27-34); Mean Corpuscular Volume 87.3 FL (87-102); Mean Platelet Volume 10.7 FL (9.6-12.0); Monocytes # 0.4 10*3/uL (0.11-0.8); Neutrophils # 3.3 10*3/uL (1.4-7.4); Neutrophils % 58.3 % (38.7-73.9); Platelet Count 218 T/CUMM (130-400); Red Blood Count 3.23 MC/CUMM (3.8-5.5); Red Cell Distribution Width 14.2 % (9.3-17.3); White Blood Count 5.7 T/CUMM (4-12)
[2018-07-04] MEDS: INSULIN LISPRO 100 UNIT/ML SUBCUT SCH ×4 (08:16→21:09)
[2018-07-04] MEDS: FLUTICASONE 50 MCG NASAL SPRAY 16 GM BOTTLE BOTH NARES SCH (08:28)
[2018-07-04] MEDS: amLODIPine 10 MG TABLET PO SCH (08:28)
[2018-07-04] MEDS: TAMSULOSIN 0.4 MG CAPSULE PO SCH ×2 (08:28→21:10)
[2018-07-04] MEDS: MULTIVITAMIN (CENTRUM) TABLET PO SCH (08:28)
[2018-07-04] MEDS: CARVEDILOL 12.5 MG TABLET PO SCH ×2 (08:28→16:24)
[2018-07-04] MEDS: glyBURIDE 5 MG TABLET PO SCH (08:28)
[2018-07-04] MEDS: PANTOPRAZOLE 40 MG VIAL IV SCH (08:28)
[2018-07-04] MEDS: DOCUSATE SODIUM 100 MG CAPSULE PO SCH ×2 (08:28→21:10)
[2018-07-04] MEDS: ENALAPRIL 10 MG TABLET PO SCH (16:24)
[2018-07-04] MEDS: ATORVASTATIN 40 MG TABLET PO SCH (21:10)
[2018-07-05] MEDS: SODIUM CHLORIDE 0.9% 1,000 ML IV SCH ×3 (04:49→21:13)
[2018-07-05 05:41] LABS: Basophils % 0.1 % (0.0-0.8); Eosinophils # 0.1 10*3/uL (0.0-0.87); Eosinophils % 1.6 % (0.00-10.9); Hematocrit 27.4 VOL% (42.0-52.0); Hemoglobin 8.7 GM/DL (14.0-18.0); Immature Granulocytes % 0.3 %; Immature Granulocytes Absolute 0.02 #; Lymphocytes # 1.9 10*3/uL (1.4-4.0); Lymphocytes % 26.5 % (21.2-54.2); Mean Corpuscular HGB Conc 31.8 GM/DL (32-36); Mean Corpuscular Hemoglobin 28 PG (27-34); Mean Corpuscular Volume 87.3 FL (87-102); Mean Platelet Volume 10.2 FL (9.6-12.0); Monocytes # 0.4 10*3/uL (0.11-0.8); Monocytes % 6.2 % (1.7-12.7); Neutrophils # 4.6 10*3/uL (1.4-7.4); Neutrophils % 65.3 % (38.7-73.9); Platelet Count 228 T/CUMM (130-400); Red Blood Count 3.14 MC/CUMM (3.8-5.5); Red Cell Distribution Width 14.3 % (9.3-17.3)
[2018-07-05 06:10] LABS: Osmolality,Calculated 285.4 MOS/KG (273-304); Potassium 3.6 MMOL/L (3.5-5.1)
[2018-07-05 06:22] LABS: Apearance,Urine Slightly Hazy (Clear); Bilirubin,Urine Negative (Negative); Blood, Urine Negative (Negative); Glucose,Urine (UA) Negative (Negative); Ketones,Urine Negative (Negative); Nitrite,Urine Negative (Negative); Protein,Urine Negative; Squamous Epithelial Cell,Urine Occasional /HPF (0-10); Urine Color Yellow (Yellow); Urine Specific Gravity 1.005 (1.001-1.035)
[2018-07-05] MEDS: INSULIN LISPRO 100 UNIT/ML SUBCUT SCH ×4 (08:43→21:16)
[2018-07-05] MEDS: DOCUSATE SODIUM 100 MG CAPSULE PO SCH ×2 (09:01→21:15)
[2018-07-05] MEDS: amLODIPine 10 MG TABLET PO SCH (09:01)
[2018-07-05] MEDS: CARVEDILOL 12.5 MG TABLET PO SCH ×2 (09:01→18:00)
[2018-07-05] MEDS: glyBURIDE 5 MG TABLET PO SCH (09:01)
[2018-07-05] MEDS: PANTOPRAZOLE 40 MG VIAL IV SCH (09:02)
[2018-07-05] MEDS: TAMSULOSIN 0.4 MG CAPSULE PO SCH ×2 (09:02→21:14)
[2018-07-05] MEDS: MULTIVITAMIN (CENTRUM) TABLET PO SCH (09:02)
[2018-07-05] MEDS: FLUTICASONE 50 MCG NASAL SPRAY 16 GM BOTTLE BOTH NARES SCH (09:07)
[2018-07-05] MEDS ORDERED: BISACODYL 5 MG TABLET PO ONE (12:00)
[2018-07-05] MEDS: ENALAPRIL 10 MG TABLET PO SCH (17:23)
[2018-07-05] MEDS ORDERED: POLYETHYLENE GLYCOL POWDER 255 GM BOTTLE PO ONE (18:00)
[2018-07-05] MEDS: ATORVASTATIN 40 MG TABLET PO SCH (21:14)
[2018-07-06 04:51] LABS: Basophils % 0.2 % (0.0-0.8); Eosinophils # 0.1 10*3/uL (0.0-0.87); Eosinophils % 1.9 % (0.00-10.9); Hematocrit 26.3 VOL% (42.0-52.0); Hemoglobin 8.3 GM/DL (14.0-18.0); Immature Granulocytes % 0.2 %; Immature Granulocytes Absolute 0.01 #; Lymphocytes % 35.1 % (21.2-54.2); Mean Corpuscular HGB Conc 31.6 GM/DL (32-36); Mean Corpuscular Hemoglobin 28 PG (27-34); Mean Corpuscular Volume 88.6 FL (87-102); Mean Platelet Volume 10.1 FL (9.6-12.0); Monocytes # 0.5 10*3/uL (0.11-0.8); Monocytes % 8.4 % (1.7-12.7); Neutrophils # 3.1 10*3/uL (1.4-7.4); Neutrophils % 54.2 % (38.7-73.9); Platelet Count 211 T/CUMM (130-400); Red Blood Count 2.97 MC/CUMM (3.8-5.5); Red Cell Distribution Width 14.4 % (9.3-17.3); White Blood Count 5.7 T/CUMM (4-12)
[2018-07-06] MEDS: SODIUM CHLORIDE 0.9% 1,000 ML IV SCH ×2 (05:16→14:59)
[2018-07-06 05:18] LABS: Calcium 8.2 MG/DL (8.5-10.1); Osmolality,Calculated 285.6 MOS/KG (273-304); Potassium 3.5 MMOL/L (3.5-5.1)
[2018-07-06] MEDS: INSULIN LISPRO 100 UNIT/ML SUBCUT SCH ×4 (08:44→23:44)
[2018-07-06] MEDS ORDERED: PROPOFOL 200 MG/20 ML VIAL IV ONE (09:00)
[2018-07-06] MEDS ORDERED: LIDOCAINE 2% 5 ML VIAL ONE (09:00)
[2018-07-06] MEDS: MULTIVITAMIN (CENTRUM) TABLET PO SCH (09:47)
[2018-07-06] MEDS: DOCUSATE SODIUM 100 MG CAPSULE PO SCH ×2 (09:47→20:43)
[2018-07-06] MEDS: CARVEDILOL 12.5 MG TABLET PO SCH ×2 (09:47→16:42)
[2018-07-06] MEDS: glyBURIDE 5 MG TABLET PO SCH (09:48)
[2018-07-06] MEDS: amLODIPine 10 MG TABLET PO SCH (09:48)
[2018-07-06] MEDS: FLUTICASONE 50 MCG NASAL SPRAY 16 GM BOTTLE BOTH NARES SCH (09:48)
[2018-07-06] MEDS: TAMSULOSIN 0.4 MG CAPSULE PO SCH ×2 (09:48→20:43)
[2018-07-06] MEDS: PANTOPRAZOLE 40 MG VIAL IV SCH (10:10)
[2018-07-06 14:40] LABS: Hematocrit 26.5 VOL% (42.0-52.0); Hemoglobin 8.4 GM/DL (14.0-18.0)
[2018-07-06] MEDS: ENALAPRIL 10 MG TABLET PO SCH (16:42)
[2018-07-06 20:37] LABS: Hematocrit 24.7 VOL% (42.0-52.0); Hemoglobin 7.8 GM/DL (14.0-18.0)
[2018-07-06] MEDS: ATORVASTATIN 40 MG TABLET PO SCH (20:43)
[2018-07-07] MEDS: SODIUM CHLORIDE 0.9% 1,000 ML IV SCH ×3 (00:38→20:14)
[2018-07-07 02:08] LABS: Hematocrit 24.9 VOL% (42.0-52.0)
[2018-07-07] MEDS ORDERED: cefOXitin 2,000 MG in SYRINGE 1 EACH IV ONE (06:00)
[2018-07-07] MEDS: INSULIN LISPRO 100 UNIT/ML SUBCUT SCH ×4 (07:29→22:54)
[2018-07-07 07:43] LABS: Hematocrit 26.9 VOL% (42.0-52.0); Hemoglobin 8.5 GM/DL (14.0-18.0)
[2018-07-07] MEDS ORDERED: LIDOCAINE 1%/EPI INJ 20 ML VIAL ONE (07:59)
[2018-07-07] MEDS ORDERED: LIDOCAINE 2% TOP JELLY 20 ML VIAL INTRAURETH ONE (08:47)
[2018-07-07] MEDS ORDERED: ONDANSETRON 4 MG/2 ML VIAL IV PRN (09:01)
[2018-07-07] MEDS ORDERED: MEPERIDINE 25 MG/1 ML VIAL IV PRN (09:01)
[2018-07-07] MEDS ORDERED: HYDROmorphone 2 MG/1 ML VIAL IV PRN (09:01)
[2018-07-07] MEDS ORDERED: PROMETHAZINE INJ 25 MG in SODIUM CHLORIDE 0.9% 50 ML IV PRN (09:01)
[2018-07-07] MEDS ORDERED: SODIUM CHLORIDE 0.9% 1,000 ML IV PRN (09:35)
[2018-07-07] MEDS: MULTIVITAMIN (CENTRUM) TABLET PO SCH (10:04)
[2018-07-07] MEDS: DOCUSATE SODIUM 100 MG CAPSULE PO SCH ×2 (10:04→20:51)
[2018-07-07] MEDS: amLODIPine 10 MG TABLET PO SCH (10:04)
[2018-07-07] MEDS: CARVEDILOL 12.5 MG TABLET PO SCH ×2 (10:04→16:05)
[2018-07-07] MEDS: TAMSULOSIN 0.4 MG CAPSULE PO SCH ×2 (10:04→20:51)
[2018-07-07] MEDS: PANTOPRAZOLE 40 MG VIAL IV SCH (10:05)
[2018-07-07] MEDS: glyBURIDE 5 MG TABLET PO SCH (10:07)
[2018-07-07] MEDS: FLUTICASONE 50 MCG NASAL SPRAY 16 GM BOTTLE BOTH NARES SCH (10:07)
[2018-07-07 10:09] LABS: Basophils % 0.2 % (0.0-0.8); Eosinophils # 0.1 10*3/uL (0.0-0.87); Eosinophils % 1.1 % (0.00-10.9); Hematocrit 26.9 VOL% (42.0-52.0); Hemoglobin 8.6 GM/DL (14.0-18.0); Immature Granulocytes % 0.3 %; Immature Granulocytes Absolute 0.02 #; Lymphocytes # 1.6 10*3/uL (1.4-4.0); Lymphocytes % 24.7 % (21.2-54.2); Mean Corpuscular Hemoglobin 29 PG (27-34); Mean Corpuscular Volume 89.4 FL (87-102); Mean Platelet Volume 9.8 FL (9.6-12.0); Monocytes # 0.4 10*3/uL (0.11-0.8); Monocytes % 5.7 % (1.7-12.7); Neutrophils # 4.3 10*3/uL (1.4-7.4); Platelet Count 218 T/CUMM (130-400); Red Blood Count 3.01 MC/CUMM (3.8-5.5); Red Cell Distribution Width 14.6 % (9.3-17.3); White Blood Count 6.3 T/CUMM (4-12)
[2018-07-07] MEDS ORDERED: PROPOFOL 200 MG/20 ML VIAL IV ONE (11:16)
[2018-07-07] MEDS ORDERED: fentaNYL 100 MCG/2 ML VIAL ONE (11:17)
[2018-07-07] MEDS ORDERED: PHENYLEPHRINE 10 MG/1 ML VIAL IV ONE (11:17)
[2018-07-07] MEDS ORDERED: ONDANSETRON 4 MG/2 ML VIAL ONE (11:17)
[2018-07-07] MEDS ORDERED: SEVOFLURANE 1 UNIT/15 MINUTE INH ONE (11:17)
[2018-07-07] MEDS: ENALAPRIL 10 MG TABLET PO SCH (18:24)
[2018-07-07] MEDS: ATORVASTATIN 40 MG TABLET PO SCH (20:51)
[2018-07-08] MEDS: SODIUM CHLORIDE 0.9% 1,000 ML IV SCH (04:08)
[2018-07-08 07:53] LABS: Hematocrit 27.2 VOL% (42.0-52.0); Hemoglobin 8.8 GM/DL (14.0-18.0)
[2018-07-08] MEDS: INSULIN LISPRO 100 UNIT/ML SUBCUT SCH ×2 (08:34→15:15)
[2018-07-08] MEDS: MULTIVITAMIN (CENTRUM) TABLET PO SCH (08:39)
[2018-07-08] MEDS: amLODIPine 10 MG TABLET PO SCH (08:39)
[2018-07-08] MEDS: glyBURIDE 5 MG TABLET PO SCH (08:39)
[2018-07-08] MEDS: TAMSULOSIN 0.4 MG CAPSULE PO SCH (08:40)
[2018-07-08] MEDS: FLUTICASONE 50 MCG NASAL SPRAY 16 GM BOTTLE BOTH NARES SCH (08:40)
[2018-07-08] MEDS: CARVEDILOL 12.5 MG TABLET PO SCH (08:40)
[2018-07-08] MEDS: DOCUSATE SODIUM 100 MG CAPSULE PO SCH (08:40)
[2018-07-08] MEDS: PANTOPRAZOLE 40 MG VIAL IV SCH (08:41)
[2018-07-08 13:58] LABS: Hematocrit 29.4 VOL% (42.0-52.0); Hemoglobin 9.6 GM/DL (14.0-18.0)
[2018-07-08 14:32] VITALS: BP 124/60
== END 2018-07-08 14:29 | DRG 348 ==
LOC: EDBD → EDUNIT# → N.ED 12:51 → N.EDINP 15:42 → N.2E 16:28 → N.4E 07-07 10:35
PROVIDERS: ADMIT Family Medicine; ATTEND Family Medicine
PROC: COLONHP (2018-07-06 12:35)

== ENCOUNTER 2019-03-21 22:13 | Inpatient (IN) ==
[2019-03-21] MEDS ORDERED: CEFEPIME 2,000 MG in SODIUM CHLORIDE 0.9% 100 ML IV STA (22:54)
[2019-03-21] MEDS ORDERED: VANCOMYCIN INJ 1,250 MG in SODIUM CHLORIDE 0.9% 250 ML IV STA (22:54)
[2019-03-21] MEDS ORDERED: VANCOMYCIN 1,000 MG VIAL ONE (23:10)
[2019-03-21 23:12] LABS: Basophils % 0.2 % (0.0-0.8); Eosinophils # 0.1 10*3/uL (0.0-0.87); Eosinophils % 0.4 % (0.00-10.9); Hematocrit 27.9 VOL% (42.0-52.0); Hemoglobin 8.9 GM/DL (14.0-18.0); Immature Granulocytes % 0.6 %; Immature Granulocytes Absolute 0.08 #; Lymphocytes # 2.4 10*3/uL (1.4-4.0); Lymphocytes % 18.2 % (21.2-54.2); Mean Corpuscular HGB Conc 31.9 GM/DL (32-36); Mean Corpuscular Volume 82.5 FL (87-102); Mean Platelet Volume 9.2 FL (9.6-12.0); Monocytes % 6.4 % (1.7-12.7); Neutrophils % 74.2 % (38.7-73.9); Platelet Count 341 T/CUMM (130-400); Red Blood Count 3.38 MC/CUMM (3.8-5.5); White Blood Count 13.4 T/CUMM (4-12)
[2019-03-21] MEDS: CEFEPIME 2,000 MG in SODIUM CHLORIDE 0.9% 100 ML IV STA ×2 (23:15→23:21)
[2019-03-22 00:15] LABS: Sedimentation Rate-Westergren 126 MM/HR (0-20)
[2019-03-22] MEDS ORDERED: SODIUM CHLORIDE 0.9% 1,000 ML IV STA ×2 (00:17→01:05)
[2019-03-22 00:56] LABS: Alanine Aminotransferase 44 U/L (16-61); Albumin 2.2 G/DL (3.4-5.0); Alkaline Phosphatase 132 U/L (45-117); Aspartate Amino Transferase 31 U/L (0-37); Bilirubin,Total 0.47 MG/DL (0.2-1.0); Calcium 8.8 MG/DL (8.5-10.1); Total Protein 7.9 G/DL (6.4-8.3)
[2019-03-22 00:57] LABS: Blood Urea Nitrogen 15 MG/DL (7-18); Glucose 209 MG/DL (74-106)
[2019-03-22] MEDS ORDERED: DEXTROSE 50% 25 GM/50 ML VIAL IV PRN (04:02)
[2019-03-22] MEDS ORDERED: ONDANSETRON 4 MG/2 ML VIAL IV PRN (04:02)
[2019-03-22] MEDS ORDERED: GLUCAGON 1 MG VIAL IM PRN (04:02)
[2019-03-22] MEDS: ENOXAPARIN 40 MG/0.4 ML SYRINGE SUBCUT SCH (06:00)
[2019-03-22] MEDS: INSULIN REGULAR 100 UNIT/ML SUBCUT SCH ×3 (06:00→17:33)
[2019-03-22] MEDS: PANTOPRAZOLE 40 MG TABLET PO SCH ×2 (06:01)
[2019-03-22] MEDS: PIPERACILLIN/TAZOBACTAM 3,375 MG in SODIUM CHLORIDE 0.9% 100 ML IV SCH ×3 (06:10→20:42)
[2019-03-22 08:37] LABS: Apearance,Urine CLOUDY (Clear); Bilirubin,Urine Negative (Negative); Blood, Urine Small mg/dL (Negative); Glucose,Urine (UA) Negative (Negative); Ketones,Urine Negative (Negative); Nitrite,Urine Negative (Negative); Protein,Urine Negative; RBC,Urine 16 /HPF (0-4); Urine Color Yellow (Yellow); Urine Specific Gravity 1.009 (1.001-1.035); Urine Urobilinogen < 2.0 EU/DL (0.2-1.0); WBC,Urine 253 /HPF (0-6)
[2019-03-22] MEDS: TAMSULOSIN 0.4 MG CAPSULE PO SCH ×2 (09:47→20:42)
[2019-03-22] MEDS: amLODIPine 10 MG TABLET PO SCH (09:58)
[2019-03-22] MEDS: CARVEDILOL 12.5 MG TABLET PO SCH ×2 (09:58→17:33)
[2019-03-22] MEDS: VANCOMYCIN INJ 1,250 MG in SODIUM CHLORIDE 0.9% 250 ML IV SCH ×2 (09:59→17:34)
[2019-03-22] MEDS: FLUTICASONE 50 MCG NASAL SPRAY 16 GM BOTTLE BOTH NARES SCH (10:18)
[2019-03-22] MEDS ORDERED: BUPIVACAINE 0.5% 50 ML VIAL ONE (12:50)
[2019-03-22] MEDS ORDERED: LIDOCAINE 1% 20 ML VIAL ONE (12:51)
[2019-03-22] MEDS ORDERED: PROPOFOL 200 MG/20 ML VIAL IV ONE (13:50)
[2019-03-22] MEDS ORDERED: SEVOFLURANE 1 UNIT/15 MINUTE INH ONE (13:50)
[2019-03-22] MEDS ORDERED: ONDANSETRON 4 MG/2 ML VIAL ONE (13:51)
[2019-03-22] MEDS ORDERED: fentaNYL 100 MCG/2 ML VIAL ONE (13:51)
[2019-03-22] MEDS ORDERED: ETOMIDATE 40 MG/20 ML VIAL IV ONE (13:51)
[2019-03-22] MEDS ORDERED: PHENYLEPHRINE 10 MG/1 ML VIAL IV ONE (13:51)
[2019-03-22] MEDS ORDERED: LACTATED RINGERS 1,000 ML IV ONE (13:51)
[2019-03-22] MEDS: ATORVASTATIN 40 MG TABLET PO SCH (20:42)
[2019-03-23] MEDS: INSULIN REGULAR 100 UNIT/ML SUBCUT SCH ×4 (00:46→19:28)
[2019-03-23] MEDS: VANCOMYCIN INJ 1,250 MG in SODIUM CHLORIDE 0.9% 250 ML IV SCH (01:50)
[2019-03-23] MEDS: PIPERACILLIN/TAZOBACTAM 3,375 MG in SODIUM CHLORIDE 0.9% 100 ML IV SCH ×2 (04:12→20:40)
[2019-03-23 04:43] LABS: Basophils % 0.2 % (0.0-0.8); Eosinophils # 0.2 10*3/uL (0.0-0.87); Eosinophils % 1.6 % (0.00-10.9); Hematocrit 26.2 VOL% (42.0-52.0); Hemoglobin 8.5 GM/DL (14.0-18.0); Immature Granulocytes % 0.8 %; Lymphocytes # 1.8 10*3/uL (1.4-4.0); Lymphocytes % 14.6 % (21.2-54.2); Mean Corpuscular HGB Conc 32.4 GM/DL (32-36); Mean Corpuscular Volume 81.4 FL (87-102); Mean Platelet Volume 9.5 FL (9.6-12.0); Monocytes % 5.9 % (1.7-12.7); Neutrophils % 76.9 % (38.7-73.9); Platelet Count 308 T/CUMM (130-400); Red Blood Count 3.22 MC/CUMM (3.8-5.5); Red Cell Distribution Width 13.2 % (9.3-17.3)
[2019-03-23 05:11] LABS: Calcium 8.6 MG/DL (8.5-10.1)
[2019-03-23 05:15] LABS: Albumin 1.9 G/DL (3.4-5.0); Bilirubin,Total 1.1 MG/DL (0.2-1.0); Calcium 8.9 MG/DL (8.5-10.1); Osmolality,Calculated 277.4 MOS/KG (273-304)
[2019-03-23] MEDS: ENOXAPARIN 40 MG/0.4 ML SYRINGE SUBCUT SCH (06:55)
[2019-03-23] MEDS: PANTOPRAZOLE 40 MG TABLET PO SCH (06:55)
[2019-03-23] MEDS ORDERED: DEXTROSE 50% 25 GM/50 ML VIAL IV PRN (08:55)
[2019-03-23] MEDS ORDERED: GLUCAGON 1 MG VIAL IM PRN (08:55)
[2019-03-23] MEDS: CARVEDILOL 12.5 MG TABLET PO SCH ×2 (08:57→18:48)
[2019-03-23] MEDS: FLUTICASONE 50 MCG NASAL SPRAY 16 GM BOTTLE BOTH NARES SCH (08:57)
[2019-03-23] MEDS: TAMSULOSIN 0.4 MG CAPSULE PO SCH ×2 (08:57→20:44)
[2019-03-23] MEDS: amLODIPine 10 MG TABLET PO SCH (08:57)
[2019-03-23] MEDS ORDERED: SODIUM CHLORIDE 0.9% 1,000 ML IV PRN (09:29)
[2019-03-23 09:56] LABS: % Iron Saturation 18.8 % (18-50)
[2019-03-23] MEDS ORDERED: GENTAMICIN INJ 130 MG in SODIUM CHLORIDE 0.9% 100 ML IV SCH (10:00)
[2019-03-23 10:05] LABS: Folate 8.3 NG/ML (5.4-24.0)
[2019-03-23] MEDS ORDERED: GENTAMICIN IV SCH (12:00)
[2019-03-23] MEDS ORDERED: SODIUM CHLORIDE 0.9% IV SCH (12:00)
[2019-03-23] MEDS: SODIUM HYPOCHLORITE 0.25% IRRIG 473 ML BOTTLE TOP SCH (15:29)
[2019-03-23] MEDS: ATORVASTATIN 40 MG TABLET PO SCH (20:44)
[2019-03-24] MEDS: INSULIN REGULAR 100 UNIT/ML SUBCUT SCH ×4 (01:46→18:22)
[2019-03-24] MEDS: PIPERACILLIN/TAZOBACTAM 3,375 MG in SODIUM CHLORIDE 0.9% 100 ML IV SCH ×2 (05:30→15:30)
[2019-03-24] MEDS: ENOXAPARIN 40 MG/0.4 ML SYRINGE SUBCUT SCH (06:50)
[2019-03-24 06:53] LABS: Basophils % 0.2 % (0.0-0.8); Eosinophils # 0.2 10*3/uL (0.0-0.87); Eosinophils % 1.7 % (0.00-10.9); Hematocrit 31.4 VOL% (42.0-52.0); Hemoglobin 10.2 GM/DL (14.0-18.0); Immature Granulocytes % 0.7 %; Immature Granulocytes Absolute 0.09 #; Lymphocytes # 1.8 10*3/uL (1.4-4.0); Lymphocytes % 14.6 % (21.2-54.2); Mean Corpuscular HGB Conc 32.5 GM/DL (32-36); Mean Corpuscular Volume 83.3 FL (87-102); Mean Platelet Volume 9.3 FL (9.6-12.0); Monocytes % 6.3 % (1.7-12.7); Neutrophils % 76.5 % (38.7-73.9); Platelet Count 297 T/CUMM (130-400); Red Blood Count 3.77 MC/CUMM (3.8-5.5); Red Cell Distribution Width 13.9 % (9.3-17.3); White Blood Count 12.6 T/CUMM (4-12)
[2019-03-24 07:04] LABS: Calcium 8.7 MG/DL (8.5-10.1); Osmolality,Calculated 278.4 MOS/KG (273-304)
[2019-03-24] MEDS: PANTOPRAZOLE 40 MG TABLET PO SCH (07:44)
[2019-03-24 08:46] LABS: Hematocrit 31.6 VOL% (42.0-52.0); Hemoglobin 10.4 GM/DL (14.0-18.0)
[2019-03-24] MEDS: CARVEDILOL 12.5 MG TABLET PO SCH ×2 (08:54→17:05)
[2019-03-24] MEDS: amLODIPine 10 MG TABLET PO SCH (08:54)
[2019-03-24] MEDS: SODIUM HYPOCHLORITE 0.25% IRRIG 473 ML BOTTLE TOP SCH (08:55)
[2019-03-24] MEDS: FLUTICASONE 50 MCG NASAL SPRAY 16 GM BOTTLE BOTH NARES SCH (08:55)
[2019-03-24] MEDS: TAMSULOSIN 0.4 MG CAPSULE PO SCH ×2 (08:55→21:12)
[2019-03-24] MEDS ORDERED: cefTRIAXone 2,000 MG in SYRINGE 1 EACH IV SCH (16:00)
[2019-03-24] MEDS ORDERED: INSULIN GLARGINE 100 UNIT/ML SUBCUT SCH (21:00)
[2019-03-24] MEDS: ATORVASTATIN 40 MG TABLET PO SCH (21:12)
[2019-03-25] MEDS: INSULIN REGULAR 100 UNIT/ML SUBCUT SCH ×3 (00:59→14:06)
[2019-03-25 05:41] LABS: Basophils % 0.2 % (0.0-0.8); Eosinophils # 0.2 10*3/uL (0.0-0.87); Eosinophils % 1.6 % (0.00-10.9); Hemoglobin 11.3 GM/DL (14.0-18.0); Immature Granulocytes % 0.6 %; Immature Granulocytes Absolute 0.07 #; Lymphocytes % 18.4 % (21.2-54.2); Mean Corpuscular HGB Conc 32.3 GM/DL (32-36); Mean Corpuscular Volume 82.7 FL (87-102); Mean Platelet Volume 9.3 FL (9.6-12.0); Neutrophils % 73.2 % (38.7-73.9); Platelet Count 316 T/CUMM (130-400); Red Blood Count 4.23 MC/CUMM (3.8-5.5); Red Cell Distribution Width 13.8 % (9.3-17.3); White Blood Count 10.9 T/CUMM (4-12)
[2019-03-25 06:16] LABS: Albumin 1.9 G/DL (3.4-5.0); Bilirubin,Total 0.7 MG/DL (0.2-1.0); Calcium 9.1 MG/DL (8.5-10.1); Osmolality,Calculated 274.5 MOS/KG (273-304); Total Protein 7.5 G/DL (6.4-8.3)
[2019-03-25] MEDS: PANTOPRAZOLE 40 MG TABLET PO SCH (06:24)
[2019-03-25] MEDS: ENOXAPARIN 40 MG/0.4 ML SYRINGE SUBCUT SCH (06:29)
[2019-03-25] MEDS: FLUTICASONE 50 MCG NASAL SPRAY 16 GM BOTTLE BOTH NARES SCH (09:20)
[2019-03-25] MEDS: SODIUM HYPOCHLORITE 0.25% IRRIG 473 ML BOTTLE TOP SCH (09:20)
[2019-03-25] MEDS: amLODIPine 10 MG TABLET PO SCH (09:20)
[2019-03-25] MEDS: CARVEDILOL 12.5 MG TABLET PO SCH (09:20)
[2019-03-25 11:42] VITALS: BP 151/72
[2019-03-25] MEDS: TAMSULOSIN 0.4 MG CAPSULE PO SCH (13:00)
== END 2019-03-25 15:45 | disposition hospice, home (50) | DRG 982 ==
LOC: EDBD → EDUNIT# → N.ED 22:13 → N.EDINP 22:13 → N.3E 03-22 04:38
PROVIDERS: ADMIT Internal Medicine; ATTEND Internal Medicine

== ENCOUNTER 2019-05-04 02:17 | Inpatient (IN) ==
[2019-05-04] MEDS ORDERED: SODIUM CHLORIDE 0.9% 500 ML IV STA (02:33)
[2019-05-04] MEDS ORDERED: CEFTAROLINE 600 MG in SODIUM CHLORIDE 0.9% 100 ML IV STA (02:35)
[2019-05-04 02:58] LABS: Basophils % 0.1 % (0.0-0.8); Hematocrit 29.7 VOL% (42.0-52.0); Hemoglobin 9.8 GM/DL (14.0-18.0); Immature Granulocytes % 0.7 %; Immature Granulocytes Absolute 0.16 #; Lymphocytes # 1.5 10*3/uL (1.4-4.0); Lymphocytes % 6.1 % (21.2-54.2); Mean Corpuscular Volume 78.6 FL (87-102); Mean Platelet Volume 9.5 FL (9.6-12.0); Neutrophils % 89.1 % (38.7-73.9); Platelet Count 355 T/CUMM (130-400); Red Blood Count 3.78 MC/CUMM (3.8-5.5); Red Cell Distribution Width 16.4 % (9.3-17.3); White Blood Count 23.7 T/CUMM (4-12)
[2019-05-04 03:05] LABS: INR 1.3; PT Patient Result 14.6 SECS (9.6-12.2)
[2019-05-04] MEDS ORDERED: ACETAMINOPHEN 500 MG TABLET PO STA (03:13)
[2019-05-04 03:16] LABS: Albumin 1.9 G/DL (3.4-5.0); Calcium 8.9 MG/DL (8.5-10.1); Osmolality,Calculated 280.8 MOS/KG (273-304); Total Protein 7.9 G/DL (6.4-8.3)
[2019-05-04 03:59] LABS: Lymphocytes 6 % (20-55); Segmented Neutrophils 93 % (50-85); Total Cells Counted 100
[2019-05-04 04:00] LABS: Anisocytosis Slight; Hypochromasia Slight; Microcytosis 2+
[2019-05-04 04:01] LABS: Ovalocytes Slight; Platelet Estimate Normal; Polychromasia Few
[2019-05-04] MEDS ORDERED: DEXTROSE 50% 25 GM/50 ML VIAL IV PRN ×2 (04:35)
[2019-05-04] MEDS ORDERED: GLUCAGON 1 MG VIAL IM PRN (04:35)
[2019-05-04] MEDS ORDERED: DOCUSATE SODIUM 100 MG CAPSULE PO PRN (04:39)
[2019-05-04] MEDS: PIPERACILLIN/TAZOBACTAM 3,375 MG in SODIUM CHLORIDE 0.9% 100 ML IV SCH ×3 (06:18→23:03)
[2019-05-04] MEDS: INSULIN LISPRO 100 UNIT/ML SUBCUT SCH ×4 (08:04→21:46)
[2019-05-04] MEDS: TAMSULOSIN 0.4 MG CAPSULE PO SCH ×2 (09:56→21:46)
[2019-05-04] MEDS: MULTIVITAMIN (CENTRUM) TABLET PO SCH (09:56)
[2019-05-04] MEDS: PANTOPRAZOLE 40 MG TABLET PO SCH (09:56)
[2019-05-04] MEDS: VANCOMYCIN INJ 1,250 MG in SODIUM CHLORIDE 0.9% 250 ML IV SCH ×2 (09:56→21:45)
[2019-05-04] MEDS: carvediloL 3.125 MG TABLET PO SCH ×2 (09:56→21:45)
[2019-05-04] MEDS: FLUTICASONE 50 MCG NASAL SPRAY 16 GM BOTTLE BOTH NARES SCH (09:56)
[2019-05-04] MEDS: SODIUM HYPOCHLORITE 0.25% IRRIG 473 ML BOTTLE TOP SCH (10:02)
[2019-05-04 11:11] LABS: % Iron Saturation 12.8 % (18-50); Ferritin 1830.7 ng/ml (26-388)
[2019-05-04 11:40] LABS: Folate 16.2 NG/ML (5.4-24.0)
[2019-05-04] MEDS: ATORVASTATIN 40 MG TABLET PO SCH (21:45)
[2019-05-04] MEDS: ACETAMINOPHEN 500 MG TABLET PO PRN (21:46)
[2019-05-04] MEDS: INSULIN GLARGINE 100 UNIT/ML SUBCUT SCH (21:47)
[2019-05-05] MEDS: PIPERACILLIN/TAZOBACTAM 3,375 MG in SODIUM CHLORIDE 0.9% 100 ML IV SCH ×3 (05:03→20:23)
[2019-05-05 05:16] LABS: Basophils % 0.1 % (0.0-0.8); Eosinophils # 0.2 10*3/uL (0.0-0.87); Eosinophils % 1.3 % (0.00-10.9); Hematocrit 26.2 VOL% (42.0-52.0); Hemoglobin 8.3 GM/DL (14.0-18.0); Immature Granulocytes % 0.6 %; Immature Granulocytes Absolute 0.09 #; Lymphocytes # 1.9 10*3/uL (1.4-4.0); Lymphocytes % 12.8 % (21.2-54.2); Mean Corpuscular HGB Conc 31.7 GM/DL (32-36); Mean Corpuscular Volume 78.9 FL (87-102); Mean Platelet Volume 9.8 FL (9.6-12.0); Monocytes % 5.5 % (1.7-12.7); Neutrophils % 79.7 % (38.7-73.9); Platelet Count 298 T/CUMM (130-400); Red Blood Count 3.32 MC/CUMM (3.8-5.5); Red Cell Distribution Width 16.4 % (9.3-17.3); White Blood Count 14.5 T/CUMM (4-12)
[2019-05-05 05:49] LABS: Albumin 1.6 G/DL (3.4-5.0); Bilirubin,Total 0.8 MG/DL (0.2-1.0); Calcium 8.9 MG/DL (8.5-10.1); Osmolality,Calculated 282.3 MOS/KG (273-304); Total Protein 6.8 G/DL (6.4-8.3)
[2019-05-05] MEDS: INSULIN LISPRO 100 UNIT/ML SUBCUT SCH ×4 (07:56→21:36)
[2019-05-05] MEDS: carvediloL 3.125 MG TABLET PO SCH ×2 (09:04→21:37)
[2019-05-05] MEDS: VANCOMYCIN INJ 1,250 MG in SODIUM CHLORIDE 0.9% 250 ML IV SCH ×2 (09:04→21:34)
[2019-05-05] MEDS: FLUTICASONE 50 MCG NASAL SPRAY 16 GM BOTTLE BOTH NARES SCH (09:04)
[2019-05-05] MEDS: PANTOPRAZOLE 40 MG TABLET PO SCH (09:05)
[2019-05-05] MEDS: MULTIVITAMIN (CENTRUM) TABLET PO SCH (09:05)
[2019-05-05] MEDS: TAMSULOSIN 0.4 MG CAPSULE PO SCH ×2 (09:05→21:37)
[2019-05-05] MEDS: SODIUM HYPOCHLORITE 0.25% IRRIG 473 ML BOTTLE TOP SCH (09:08)
[2019-05-05] MEDS ORDERED: SODIUM CHLORIDE 0.9% 1,000 ML IV PRN (10:45)
[2019-05-05] MEDS ORDERED: fentaNYL 100 MCG/2 ML VIAL ONE (14:08)
[2019-05-05] MEDS ORDERED: PROPOFOL 200 MG/20 ML VIAL IV ONE (14:08)
[2019-05-05] MEDS ORDERED: EPINEPHrine 1 MG/ML VIAL ONE (14:09)
[2019-05-05] MEDS ORDERED: BUPIVACAINE 0.5% 50 ML VIAL ONE (14:09)
[2019-05-05] MEDS ORDERED: DEXAMETHASONE 4 MG/1 ML VIAL ONE (14:09)
[2019-05-05] MEDS ORDERED: SODIUM CHLORIDE 0.9% 200 ML IV ONE (14:09)
[2019-05-05] MEDS ORDERED: LIDOCAINE 2% 5 ML VIAL ONE (14:09)
[2019-05-05] MEDS ORDERED: PHENYLEPHRINE 1 MG/10 ML SYRINGE IV ONE (14:10)
[2019-05-05] MEDS ORDERED: ONDANSETRON 4 MG/2 ML VIAL ONE (14:10)
[2019-05-05 15:49] LABS: Apearance,Urine CLEAR (Clear); Bacteria,Urine Occasional /HPF (Few); Bilirubin,Urine Negative (Negative); Blood, Urine Small mg/dL (Negative); Glucose,Urine (UA) Negative (Negative); Ketones,Urine 5 mg/dL (Negative); Mucus,Urine Occasional /LPF (Occasional); Nitrite,Urine Negative (Negative); Protein,Urine Negative; RBC,Urine 23 /HPF (0-4); Squamous Epithelial Cell,Urine Occasional /HPF (0-10); Urine Color Yellow (Yellow); Urine Specific Gravity 1.018 (1.001-1.035); WBC,Urine 2 /HPF (0-6)
[2019-05-05] MEDS: INSULIN GLARGINE 100 UNIT/ML SUBCUT SCH (21:36)
[2019-05-05] MEDS: ATORVASTATIN 40 MG TABLET PO SCH (21:37)
[2019-05-06 05:13] LABS: Basophils % 0.1 % (0.0-0.8); Hematocrit 29.9 VOL% (42.0-52.0); Hemoglobin 9.8 GM/DL (14.0-18.0); Immature Granulocytes % 0.6 %; Immature Granulocytes Absolute 0.07 #; Lymphocytes # 1.3 10*3/uL (1.4-4.0); Lymphocytes % 10.9 % (21.2-54.2); Mean Corpuscular HGB Conc 32.8 GM/DL (32-36); Mean Corpuscular Volume 80.6 FL (87-102); Mean Platelet Volume 9.6 FL (9.6-12.0); Monocytes % 4.6 % (1.7-12.7); Neutrophils % 83.8 % (38.7-73.9); Platelet Count 329 T/CUMM (130-400); Red Blood Count 3.71 MC/CUMM (3.8-5.5); White Blood Count 12.3 T/CUMM (4-12)
[2019-05-06 05:43] LABS: Albumin 1.6 G/DL (3.4-5.0); Calcium 8.5 MG/DL (8.5-10.1); Osmolality,Calculated 285.7 MOS/KG (273-304); Total Protein 7.2 G/DL (6.4-8.3)
[2019-05-06] MEDS: PIPERACILLIN/TAZOBACTAM 3,375 MG in SODIUM CHLORIDE 0.9% 100 ML IV SCH ×3 (05:59→21:10)
[2019-05-06] MEDS: carvediloL 3.125 MG TABLET PO SCH ×2 (08:58→21:10)
[2019-05-06] MEDS: INSULIN LISPRO 100 UNIT/ML SUBCUT SCH ×4 (08:58→21:09)
[2019-05-06] MEDS: TAMSULOSIN 0.4 MG CAPSULE PO SCH ×2 (08:59→21:10)
[2019-05-06] MEDS: PANTOPRAZOLE 40 MG TABLET PO SCH (08:59)
[2019-05-06] MEDS: SODIUM HYPOCHLORITE 0.25% IRRIG 473 ML BOTTLE TOP SCH (08:59)
[2019-05-06] MEDS: MULTIVITAMIN (CENTRUM) TABLET PO SCH (08:59)
[2019-05-06] MEDS: FLUTICASONE 50 MCG NASAL SPRAY 16 GM BOTTLE BOTH NARES SCH (09:00)
[2019-05-06] MEDS: INSULIN GLARGINE 100 UNIT/ML SUBCUT SCH (21:09)
[2019-05-06] MEDS: ATORVASTATIN 40 MG TABLET PO SCH (21:10)
[2019-05-07 04:50] LABS: Basophils % 0.2 % (0.0-0.8); Eosinophils # 0.2 10*3/uL (0.0-0.87); Eosinophils % 1.6 % (0.00-10.9); Hemoglobin 10.1 GM/DL (14.0-18.0); Immature Granulocytes % 0.9 %; Immature Granulocytes Absolute 0.11 #; Lymphocytes # 2.5 10*3/uL (1.4-4.0); Lymphocytes % 21.1 % (21.2-54.2); Mean Corpuscular HGB Conc 32.6 GM/DL (32-36); Mean Corpuscular Volume 80.5 FL (87-102); Mean Platelet Volume 10.4 FL (9.6-12.0); Monocytes % 5.4 % (1.7-12.7); Neutrophils % 70.8 % (38.7-73.9); Platelet Count 323 T/CUMM (130-400); Red Blood Count 3.85 MC/CUMM (3.8-5.5); Red Cell Distribution Width 16.3 % (9.3-17.3); White Blood Count 11.9 T/CUMM (4-12)
[2019-05-07 05:05] LABS: Calcium 8.7 MG/DL (8.5-10.1); Osmolality,Calculated 281.4 MOS/KG (273-304)
[2019-05-07] MEDS: PIPERACILLIN/TAZOBACTAM 3,375 MG in SODIUM CHLORIDE 0.9% 100 ML IV SCH ×3 (07:10→20:49)
[2019-05-07] MEDS: INSULIN LISPRO 100 UNIT/ML SUBCUT SCH ×4 (08:25→20:48)
[2019-05-07] MEDS: MULTIVITAMIN (CENTRUM) TABLET PO SCH (09:17)
[2019-05-07] MEDS: FLUTICASONE 50 MCG NASAL SPRAY 16 GM BOTTLE BOTH NARES SCH (09:17)
[2019-05-07] MEDS: TAMSULOSIN 0.4 MG CAPSULE PO SCH ×2 (09:18→20:48)
[2019-05-07] MEDS: PANTOPRAZOLE 40 MG TABLET PO SCH (09:18)
[2019-05-07] MEDS: carvediloL 3.125 MG TABLET PO SCH ×2 (09:18→20:48)
[2019-05-07] MEDS: SODIUM HYPOCHLORITE 0.25% IRRIG 473 ML BOTTLE TOP SCH (09:18)
[2019-05-07] MEDS: INSULIN GLARGINE 100 UNIT/ML SUBCUT SCH (20:48)
[2019-05-07] MEDS: ATORVASTATIN 40 MG TABLET PO SCH (20:48)
[2019-05-08] MEDS: PIPERACILLIN/TAZOBACTAM 3,375 MG in SODIUM CHLORIDE 0.9% 100 ML IV SCH ×3 (05:40→20:38)
[2019-05-08 05:41] LABS: Basophils % 0.2 % (0.0-0.8); Eosinophils # 0.2 10*3/uL (0.0-0.87); Eosinophils % 1.7 % (0.00-10.9); Hematocrit 31.3 VOL% (42.0-52.0); Hemoglobin 10.2 GM/DL (14.0-18.0); Immature Granulocytes Absolute 0.11 #; Lymphocytes # 2.7 10*3/uL (1.4-4.0); Lymphocytes % 24.5 % (21.2-54.2); Mean Corpuscular HGB Conc 32.6 GM/DL (32-36); Mean Corpuscular Volume 80.1 FL (87-102); Monocytes % 5.2 % (1.7-12.7); NRBC # 0.02 10*3/uL; Neutrophils % 67.4 % (38.7-73.9); Platelet Count 352 T/CUMM (130-400); Red Blood Count 3.91 MC/CUMM (3.8-5.5); Red Cell Distribution Width 16.6 % (9.3-17.3)
[2019-05-08 06:05] LABS: Calcium 8.7 MG/DL (8.5-10.1); Osmolality,Calculated 280.4 MOS/KG (273-304)
[2019-05-08] MEDS: INSULIN LISPRO 100 UNIT/ML SUBCUT SCH ×4 (08:02→20:37)
[2019-05-08] MEDS: MULTIVITAMIN (CENTRUM) TABLET PO SCH (09:51)
[2019-05-08] MEDS: carvediloL 3.125 MG TABLET PO SCH ×2 (09:51→20:37)
[2019-05-08] MEDS: PANTOPRAZOLE 40 MG TABLET PO SCH (09:51)
[2019-05-08] MEDS: FLUTICASONE 50 MCG NASAL SPRAY 16 GM BOTTLE BOTH NARES SCH (09:52)
[2019-05-08] MEDS: TAMSULOSIN 0.4 MG CAPSULE PO SCH ×2 (09:54→20:37)
[2019-05-08] MEDS ORDERED: SKIN HEALING OINT (AQUAPHOR) 50 GM TUBE TOP PRN (11:02)
[2019-05-08] MEDS: SODIUM HYPOCHLORITE 0.25% IRRIG 473 ML BOTTLE TOP SCH (12:06)
[2019-05-08] MEDS: INSULIN GLARGINE 100 UNIT/ML SUBCUT SCH (20:36)
[2019-05-08] MEDS: ATORVASTATIN 40 MG TABLET PO SCH (20:37)
[2019-05-08] MEDS: ACETAMINOPHEN 500 MG TABLET PO PRN (20:37)
[2019-05-09] MEDS: PIPERACILLIN/TAZOBACTAM 3,375 MG in SODIUM CHLORIDE 0.9% 100 ML IV SCH ×2 (05:55→13:22)
[2019-05-09] MEDS: INSULIN LISPRO 100 UNIT/ML SUBCUT SCH ×2 (08:04→12:37)
[2019-05-09] MEDS: SODIUM HYPOCHLORITE 0.25% IRRIG 473 ML BOTTLE TOP SCH (08:05)
[2019-05-09] MEDS: MULTIVITAMIN (CENTRUM) TABLET PO SCH (09:18)
[2019-05-09] MEDS: TAMSULOSIN 0.4 MG CAPSULE PO SCH (09:18)
[2019-05-09] MEDS: PANTOPRAZOLE 40 MG TABLET PO SCH (09:18)
[2019-05-09] MEDS: FLUTICASONE 50 MCG NASAL SPRAY 16 GM BOTTLE BOTH NARES SCH (09:18)
[2019-05-09] MEDS: carvediloL 3.125 MG TABLET PO SCH (09:18)
[2019-05-09 12:50] VITALS: BP 126/68
== END 2019-05-09 13:46 | DRG 239 ==
LOC: N.ED 02:17 → N.EDINP 04:34 → N.5E 05:51
PROVIDERS: ADMIT Internal Medicine; ATTEND Internal Medicine